=== PATIENT | female | born 1980 | race Caucasian/White ===

== ENCOUNTER 2018-01-02 18:27 | Emergency (ER) | payer SELFPAY ==
[2018-01-02] MEDS ORDERED: KETOROLAC TROMETHAMINE INJ/PF 30 MG/1 ML SDV IM ONE (20:29)
--- NOTE | 2018-01-02 20:34 | ER Document Report ---
ED Neck/Back Problem - General Chief Complaint: Low Back Pain Stated Complaint: BACK PAIN Time Seen by Provider: 01/02/18 19:15 Mode of Arrival: Ambulatory Information source: Patient TRAVEL OUTSIDE OF THE [place] IN LAST 30 DAYS: No - HPI Patient complains to provider of: Pain, Lower back Notes: Patient is here with complaints of low back pain. The patient has a long history of chronic back pain and used to receive injections in her back when she had insurance. She states that she has lost her Medicaid and has not been able to get her injections. Her last several days she has had increasing low back pain radiating into the left hip/buttock. No trauma or fall. This feels like prior back pain she has had in the past. She is not on blood thinning medications. She denies fever, bowel or bladder dysfunction, numbness, tingling , weakness, IV drug use. She denies any abdominal pain. She denies any nausea , vomiting, diarrhea. She denies chest pain or shortness of breath. She denies dysuria or hematuria. Pain is worse with any movement, nothing seems to make it better. She denies any other complaints at this time. - Related Data Allergies/Adverse Reactions: Penicillins Allergy (Verified 01/02/18 18:41) Past Medical History - Social History Smoking Status: Smoker,Current Status Unk Family History: Reviewed & Not Pertinent Patient has suicidal ideation: No Patient has homicidal ideation: No Pulmonary Medical History: Reports: Hx Asthma Neurological Medical History: Reports: Hx Seizures - "stress seizures" Endocrine Medical History: Reports: Hx Diabetes Mellitus Type 2 Renal/ Medical History: Denies: Hx Peritoneal Dialysis Psychiatric Medical History: Reports: Hx Anxiety, Hx Bipolar Disorder Past Surgical History: Reports: Hx Tubal Ligation - Immunizations Hx Diphtheria, Pertussis, Tetanus Vaccination: Yes Review of Systems - Review of Systems -: Yes All other systems reviewed and negative Physical Exam - Vital signs Vitals: Temp Pulse Resp BP Pulse Ox 98.6 F 94 18 143/86 H 100 01/02/18 18:44 01/02/18 18:44 01/02/18 18:44 01/02/18 18:44 01/02/18 18:44 - Notes Notes: GENERAL: alert, cooperative, nontoxic, no distress. HEAD: normocephalic, atraumatic EYES: conjunctiva pink without discharge, no external redness or swelling. EARS: no external swelling, no external redness NOSE: atraumatic, no external swelling MOUTH/THROAT: mucous membranes moist and pink, posterior pharynx without erythema, swelling, exudate. No trismus or drooling. NECK: soft, supple, full range of motion, no meningismus. CHEST: no distress, lungs clear and equal throughout. No wheezing, rales, rhonchi. CARDIAC: regular rate and rhythm, no murmur, normal capillary refill, normal pulses. No peripheral edema noted. ABDOMEN: soft, nontender, no pusatile mass. BACK: No CVA tenderness. Tenderness to the lumbar spine as well as the left SI joint. No swelling. No rash. Limited range of motion secondary to pain. EXTREMITIES: full range of motion of all extremities. No redness, no swelling. NEURO: alert and oriented A&O x 3, no focal deficits, full range of motion of all extremities. 5 out of 5 flexion and extension of the lower extremities bilaterally. Patellar and Achilles deep tendon reflexes are +2 bilaterally. Normal sensation with no saddle anesthesia. Patient can dorsiflex the great toes bilaterally. PYSCH: appropriate mood, affect. Patient is cooperative. SKIN: pink, warm, dry, no rash. Course - Re-evaluation Re-evalutation: 01/02/18 20:31 The patient is nontoxic appearing with stable vitals. The patient has a history of chronic low back pain and has been having increasing pain over the last several days. She has had no injury. Feels like prior exacerbations of her previous pain. No sign of cauda equina, epidural abscess/bleed, AAA, discitis, osteomyelitis. She has a benign exam. No abdominal tenderness. Patient will be given a shot of Toradol here in the emergency department will be discharged home with Voltaren and Zanaflex. She is instructed to follow-up if she does not feel better in 1 week, sooner for increasing pain, fever, difficulty controlling her bowels or bladder, nausea, vomiting, diarrhea, or for any further concerns. The patient is noted to have elevated blood pressure during today's emergency department visit. The patient was informed of this finding. The patient was instructed that this may be related to pre-hypertension and requires further evaluation with a primary care provider. The patient has no hypertensive symptoms at this time. The patient's emergency department workup and current diagnosis were explained to the patient and or family. Follow-up instructions were provided. Medications if prescribed were discussed. Instructions for when to return to the emergency department including specific worrisome symptoms were discussed with the patient and/or family. - Vital Signs Vital signs: Temp Pulse Resp BP Pulse Ox 98.6 F 94 18 143/86 H 100 01/02/18 18:44 01/02/18 18:44 01/02/18 18:44 01/02/18 18:44 01/02/18 18:44 Discharge - Discharge Clinical Impression: Chronic low back pain with left-sided sciatica Qualifiers: Back pain laterality: left Qualified Code(s): M54.42 - Lumbago with sciatica, left side; G89.29 - Other chronic pain; G89.29 - Other chronic pain Condition: Stable Disposition: HOME, SELF-CARE Instructions: Low Back Pain ([facility]) Additional Instructions: Take medications as prescribed. Avoid heavy lifting. Stretch as much as possible. Follow-up if not better in 1 week, sooner for worsening pain, high fever, persistent vomiting, difficulty controlling her bowels or bladder, or for any further concerns. Your blood pressure was elevated during today's visit. Have this rechecked with your doctor. Prescriptions: Diclofenac Sodium [Voltaren 50 Mg Mica.] 50 mg PO BID #20 tablet. Tizanidine HCl [Zanaflex 4 Mg Tablet] 4 mg PO BID PRN #10 tablet PRN Reason: Forms: Elevated Blood Pressure, Smoking Cessation Education Referrals: [facility] [Provider Group] - Follow up as needed
[2018-01-02 21:00] VITALS: BP 132/83
== END 2018-01-02 21:00 | disposition home or self-care (01) ==
LOC: ER 18:27
DX: M54.42 Lumbago with sciatica, left side (principal); G89.29 Other chronic pain; M25.552 Pain in left hip; E11.9 Type 2 diabetes mellitus without complications; F17.200 Nicotine dependence, unspecified, uncomplicated
CPT/HCPCS: 99283; 96372; J1885

== ENCOUNTER 2018-02-09 00:25 | Emergency (ER) | payer SELFPAY ==
[2018-02-09 01:14] LABS: ABSOLUTE BASOPHILS # (AUTO) 0.1 10^3/uL (0.0-0.2); ABSOLUTE EOSINOPHILS # (AUTO) 0.3 10^3/uL (0.0-0.6); ABSOLUTE LYMPHOCYTES (AUTO) 3.7 10^3/uL (0.5-4.7); ABSOLUTE MONOCYTES (AUTO) 0.6 10^3/uL (0.1-1.4); BASOPHILS % (AUTO) 0.8 % (0-2); EOSINOPHILS % (AUTO) 2.4 % (0-6); HEMATOCRIT 28.5 % (36.0-47.0); HEMOGLOBIN 8.9 g/dL (12.0-15.5); LYMPHOCYTES % (AUTO) 34.8 % (13-45); MEAN CORPUSCULAR HEMOGLOBIN 21.4 pg (27.0-33.4); MEAN CORPUSCULAR HGB CONC 31.2 g/dL (32.0-36.0); MEAN CORPUSCULAR VOLUME 69 fl (80-97); MONOCYTES % (AUTO) 5.5 % (3-13); PLATELET COUNT 276 10^3/uL (150-450); RED BLOOD COUNT 4.15 10^6/uL (3.72-5.28); RED CELL DISTRIBUTION WIDTH 18.5 % (11.5-14.0); SEGMENTED NEUTROPHILS % (AUTO) 56.5 % (42-78); TOTAL CELLS COUNTED % (AUTO) 100 %; WHITE BLOOD COUNT 10.6 10^3/uL (4.0-10.5)
--- NOTE | 2018-02-09 01:23 | ER Document Report ---
ED General - General Chief Complaint: Vaginal Bleeding Stated Complaint: VAGINAL BLEEDING Time Seen by Provider: 02/09/18 00:49 Notes: Patient is a 37-year-old female with a past medical history of chronic anemia, dysfunctional uterine bleeding, who presents with heavy vaginal bleeding for the past 3 hours. Patient states that she typically has heavy menstrual cycles that last for 2 weeks or more in which she often passes large clots. However she states that tonight for the past 3 hours she has been bleeding much more heavily than normal and has bled through total of 5 pads in the past 3 hours. She denies ever bleeding this heavily in the past. Nothing seems to improve or worsen her symptoms. She has not followed with an ORTHOPAEDIC DOCTOR regarding her dysfunctional uterine bleeding. She does note chronic anemia but is not currently taking iron supplementation. She does not use any form of control. She does note intermittent, cramping, mild lower abdominal pain that has been ongoing since the onset of the bleeding. She denies any lightheadedness, syncope or orthostasis. TRAVEL OUTSIDE OF THE [place] IN LAST 30 DAYS: No - Related Data Allergies/Adverse Reactions: Penicillins Allergy (Verified 01/02/18 18:41) Past Medical History - General Information source: Patient - Social History Smoking Status: Current Every Day Smoker Cigarette use (# per day): Yes - 1 pack per day Chew tobacco use (# tins/day): No Smoking Education Provided: Yes - Smoking cessation counseling was provided for 4 minutes at the bedside Frequency of alcohol use: Occasional Drug Abuse: None Lives with: Spouse/Significant other Family History: Reviewed & Not Pertinent Patient has suicidal ideation: No Patient has homicidal ideation: No Pulmonary Medical History: Reports: Hx Asthma Neurological Medical History: Reports: Hx Seizures - "stress seizures" Endocrine Medical History: Reports: Hx Diabetes Mellitus Type 2 Renal/ Medical History: Denies: Hx Peritoneal Dialysis Psychiatric Medical History: Reports: Hx Anxiety, Hx Bipolar Disorder Past Surgical History: Reports: Hx Tubal Ligation - Immunizations Hx Diphtheria, Pertussis, Tetanus Vaccination: Yes Review of Systems - Review of Systems Notes: Constitutional: Negative for fever. HENT: Negative for sore throat. Eyes: Negative for visual changes. Cardiovascular: Negative for chest pain. Respiratory: Negative for shortness of breath. Gastrointestinal: Negative for abdominal pain, vomiting or diarrhea. Genitourinary: Positive for vaginal bleeding Musculoskeletal: Negative for back pain. Skin: Negative for rash. Neurological: Negative for headaches, weakness or numbness. 10 point ROS negative except as marked above and in HPI. Physical Exam - Vital signs Vitals: Temp Pulse Resp BP Pulse Ox 98.2 F 118 H 16 153/90 H 100 02/09/18 00:31 02/09/18 00:31 02/09/18 00:31 02/09/18 00:31 02/09/18 00:31 Interpretation: Tachycardic - Resolved at the time of my assessment. Notes: PHYSICAL EXAMINATION: GENERAL: Well-appearing, well-nourished and in no acute distress. HEAD: Atraumatic, normocephalic. EYES: Pupils equal round and reactive to light, extraocular movements intact, sclera anicteric, conjunctiva are normal. ENT: nares patent, oropharynx clear without exudates. Moist mucous membranes. NECK: Normal range of motion, supple without lymphadenopathy LUNGS: Breath sounds clear to auscultation bilaterally and equal. No wheezes rales or rhonchi. HEART: Regular rate and rhythm without murmurs ABDOMEN: Soft, nontender, normoactive bowel sounds. No guarding, no rebound. No masses appreciated. EXTREMITIES: Normal range of motion, no pitting or edema. No cyanosis. NEUROLOGICAL: No focal neurological deficits. Moves all extremities spontaneously and on command. PSYCH: Normal mood, normal affect. SKIN: Warm, Dry, normal turgor, no rashes or lesions noted. Course - Re-evaluation Re-evalutation: 02/09/18 01:24 Presentation is most consistent with dysfunctional uterine bleeding and otherwise well-appearing patient. Hemoglobin does show anemia although well above the transfusion threshold at a hemoglobin of 8.9. No old for comparison. Patient does note a history of chronic anemia. She will be started on iron supplementation. She is not . Mild tachycardia at time of presentation is resolved by the time of my assessment. Examination is otherwise unremarkable. She denies bleeding through more than 2 pads an hour at any point in time. Patient will be started on oral control pills to help discontinue the bleeding. She has been encouraged to follow-up with OB/ ALUM OPERATOR. She has agreed to discontinue smoking while on control and has verbalized understanding that is extremely dangerous to smoke and use control at the same time. At this time will discharge with return precautions and follow-up recommendations. Verbal discharge instructions given a the bedside and opportunity for questions given. Medication warnings reviewed. Patient is in agreement with this plan and has verbalized understanding of return precautions and the need for primary care follow-up in the next 24-72 hours. - Vital Signs Vital signs: Temp Pulse Resp BP Pulse Ox 98.3 F 84 17 134/77 H 100 02/09/18 02:20 02/09/18 02:20 02/09/18 02:20 02/09/18 02:20 02/09/18 02:20 - Laboratory Result Diagrams: 02/09/18 01:00 Laboratory results interpreted by me: 02/09/18 01:00 WBC 10.6 H Hgb 8.9 L Hct 28.5 L MCV 69 L MCH 21.4 L MCHC 31.2 L RDW 18.5 H Discharge - Discharge Clinical Impression: Dysfunctional uterine bleeding, Blood loss anemia Condition: Good Disposition: HOME, SELF-CARE Additional Instructions: You were seen today for dysfunctional uterine bleeding. This is when you have vaginal bleeding and abdominal cramping off of your normal menstrual cycle. You have been started on control pills to help regulate your cycle and control your symptoms. You need to follow-up with ORTHOPAEDIC DOCTOR or your primary care physician the next 1-3 days. Return immediately if you worsening pain, you began bleeding through more than 3 pads per hour for more than 3 hours, you pass out, have persistent vomiting, develop a fever greater than 100.4F, or any other symptoms that are concerning to you. Prescriptions: Ferrous Sulfate 325 mg PO TID #90 tablet Norgestimate-Ethinyl Estradiol [Sprintec 28 Day Tablet] 1 each PO ASDIR PRN #2 packet PRN Reason: Referrals: NERY CALZADA MD [ACTIVE STAFF] - Follow up as needed
[2018-02-09] MEDS ORDERED: FERROUS SULFATE 325 MG TABLET PO ONE (01:27)
[2018-02-09] MEDS ORDERED: NICOTINE 7 MG/24 HR PATCH.TD24 TD ONE (01:53)
[2018-02-09] MEDS ORDERED: NICOTINE 7 MG/24 HR PATCH.TD24 ONE (02:16)
[2018-02-09 02:24] VITALS: BP 134/77
== END 2018-02-09 02:24 | disposition home or self-care (01) ==
LOC: ER 00:25
DX: N93.8 Other specified abnormal uterine and vaginal bleeding (principal); D50.0 Iron deficiency anemia secondary to blood loss (chronic); F17.210 Nicotine dependence, cigarettes, uncomplicated; J45.909 Unspecified asthma, uncomplicated; E11.9 Type 2 diabetes mellitus without complications
CPT/HCPCS: 99406; 99284; 36415; 84703; 85025; J3490

== ENCOUNTER 2018-05-28 12:31 | Emergency (ER) | payer SELFPAY ==
[2018-05-28] MEDS ORDERED: METHYLPREDNISOLONE INJ 125 MG/2 ML SDV IM ONE (12:39)
[2018-05-28] MEDS ORDERED: EPINEPHRINE INJ/PF 1 MG/1 ML AMPULE IM ONE (12:39)
[2018-05-28] MEDS ORDERED: DIPHENHYDRAMINE HCL 50 MG CAPSULE PO ONE (12:40)
--- NOTE | 2018-05-28 12:42 | ER Document Report ---
ED Allergic Reaction - General Chief Complaint: Allergic Reaction Stated Complaint: WASP STING Time Seen by Provider: 05/28/18 12:39 Mode of Arrival: Ambulatory Information source: Patient Notes: Chief complaint: Bee sting History of complain:( obtained from----patient) 37 years old female presents today with the insect bite over the left cheek. Hornet sting. She had an anaphylactic reaction to bee sting before 2 years ago. With stridors. Therefore concerned and came to the ED. This happened 10 minutes prior to me seeing her. Currently has no stridors, no difficulty in breathing. Slight erythema at the site of. Sting Onset: Sudden Duration: Just prior to arrival Severity: Mild to moderate Quality: Rash Context: As described above Exacerbating factor and relieving factors: None REVIEW OF SYSTEMS: CONSTITUTIONAL : Denies fever, chills, or sweats. Denies recent illness. EENT: Denies eye, ear, throat, or mouth pain or symptoms. Denies nasal or sinus congestion or discharge. Denies throat, tongue, or mouth swelling or difficulty swallowing. CARDIOVASCULAR: Denies chest pain. Denies palpitations or racing or irregular heart beat. Denies ankle edema. RESPIRATORY: Denies cough, cold, or chest congestion. Denies shortness of breath, difficulty breathing, or wheezing. GASTROINTESTINAL: Denies distention. Denies nausea, vomiting, or diarrhea. Denies blood in vomitus, stools, or per rectum. Denies black, tarry stools. Denies constipation. GENITOURINARY: Denies difficulty urinating, painful urination, burning, frequency, blood in urine, or discharge. FEMALE GENITOURINARY: Denies vaginal bleeding, heavy or abnormal periods, irregular periods. Denies vaginal discharge or odor. MUSCULOSKELETAL: Denies back or neck pain or stiffness. Denies joint pain or swelling. SKIN: Denies rash, lesions or sores. HEMATOLOGIC : Denies easy bruising or bleeding. LYMPHATIC: Denies swollen, enlarged glands. NEUROLOGICAL: Denies confusion or altered mental status. Denies passing out or loss of consciousness. Denies dizziness or lightheadedness. Denies headache. Denies weakness or paralysis or loss of use of either side. Denies problems with gait or speech. Denies sensory loss, numbness, or tingling. Denies seizures. PSYCHIATRIC: Denies anxiety or stress. Denies depression, suicidal ideation, or homicidal ideation. ALL OTHER SYSTEMS REVIEWED AND NEGATIVE. PHYSICAL EXAMINATION: GENERAL: Well-appearing, well-nourished and in no acute distress. HEAD: Atraumatic, normocephalic. EYES: Pupils equal round and reactive to light, extraocular movements intact, conjunctiva are normal. ENT: Nares patent, oropharynx clear without exudates. Moist mucous membranes. NECK: Normal range of motion, supple without lymphadenopathy LUNGS: Breath sounds clear to auscultation bilaterally and equal. No wheezes rales or rhonchi. HEART: Regular rate and rhythm without murmurs ABDOMEN: Soft, nontender, nondistended abdomen. No guarding, no rebound. No masses appreciated. Examination of genitals-deferred Musculoskeletal: Normal range of motion, no pitting or edema. No cyanosis. NEUROLOGICAL: Cranial nerves grossly intact. Normal speech, normal gait. Normal sensory, motor exams PSYCH: Normal mood, normal affect. SKIN: Mild erythema noted left facial region over the cheeks. Dictation was performed using [employer] voice recognition software TRAVEL OUTSIDE OF THE [place] IN LAST 30 DAYS: No - HPI Notes: Dictated - Related Data Allergies/Adverse Reactions: Penicillins Allergy (Verified 01/02/18 18:41) Past Medical History - Social History Smoking Status: Current Every Day Smoker Cigarette use (# per day): No Chew tobacco use (# tins/day): No Smoking Education Provided: No Frequency of alcohol use: Rare Drug Abuse: None Lives with: Family Family History: Reviewed & Not Pertinent Pulmonary Medical History: Reports: Hx Asthma Neurological Medical History: Reports: Hx Seizures - "stress seizures" Endocrine Medical History: Reports: Hx Diabetes Mellitus Type 2 Renal/ Medical History: Denies: Hx Peritoneal Dialysis Psychiatric Medical History: Reports: Hx Anxiety, Hx Bipolar Disorder Past Surgical History: Reports: Hx Tubal Ligation - Immunizations Hx Diphtheria, Pertussis, Tetanus Vaccination: Yes Review of Systems - Review of Systems Notes: Dictated Physical Exam - Notes Notes: Dictated Course - Re-evaluation Re-evalutation: 05/28/18 13:53 Feeling much better bee sting rash has completely disappeared, feeling comfortable to go home. Discharge - Discharge Clinical Impression: Bee sting allergy Acute allergic reaction Qualifiers: Encounter type: initial encounter Qualified Code(s): T78.40XA - Allergy, unspecified, initial encounter Condition: Fair Disposition: HOME, SELF-CARE Instructions: Acute Allergic Reaction ([facility]) Prescriptions: Epinephrine [Epipen Jr 0.15 mg/0.3 mL AutoInject] 1 ea IM ASDIR PRN #1 autoinjector PRN Reason:
== END 2018-05-28 14:10 | disposition home or self-care (01) ==
LOC: ER 12:31
DX: T63.441A Toxic effect of venom of bees, accidental (unintentional), initial encounter (principal); T78.40XA Allergy, unspecified, initial encounter; F17.200 Nicotine dependence, unspecified, uncomplicated; J45.909 Unspecified asthma, uncomplicated; E11.9 Type 2 diabetes mellitus without complications
CPT/HCPCS: 99282; 96372; 96374; J0171; J2930

== ENCOUNTER 2018-09-30 07:01 | Inpatient (IN) | payer MEDICAID ==
[2018-09-23 13:07] LABS: APPEARANCE,URINE CLEAR; BILIRUBIN,URINE NEGATIVE (NEGATIVE); COLOR,URINE STRAW; GLUCOSE, URINE NEGATIVE (NEGATIVE); KETONES,URINE NEGATIVE (NEGATIVE); LEUKOCYTE ESTERASE,URINE NEGATIVE (NEGATIVE); NITRITE,URINE NEGATIVE (NEGATIVE); PROTEIN,URINE NEGATIVE (NEGATIVE); URINE SPECIFIC GRAVITY 1.006; UROBILINOGEN,URINE NEGATIVE mg/dL (<2.0)
[2018-09-23 14:11] LABS: HEMATOCRIT 31.3 % (36.0-47.0); HEMOGLOBIN 9.7 g/dL (12.0-15.5); MEAN CORPUSCULAR HEMOGLOBIN 21.7 pg (27.0-33.4); MEAN CORPUSCULAR VOLUME 70 fl (80-97); PLATELET COUNT 293 10^3/uL (150-450); RED BLOOD COUNT 4.47 10^6/uL (3.72-5.28); RED CELL DISTRIBUTION WIDTH 21.8 % (11.5-14.0); WHITE BLOOD COUNT 7.9 10^3/uL (4.0-10.5)
[2018-09-23 14:32] LABS: ALANINE AMINOTRANSFERASE 32 U/L (9-52); ALBUMIN 4.4 g/dL (3.5-5.0); ALKALINE PHOSPHATASE 61 U/L (38-126); ANION GAP 11 (5-19); ASPARTATE AMINO TRANSFERASE 28 U/L (14-36); BILIRUBIN,DIRECT 0.2 mg/dL (0.0-0.4); BILIRUBIN,TOTAL 0.2 mg/dL (0.2-1.3); BLOOD UREA NITROGEN 9 mg/dL (7-20); CALCIUM 9.9 mg/dL (8.4-10.2); CARBON DIOXIDE 25 mmol/L (22-30); CHLORIDE 105 mmol/L (98-107); GLUCOSE 103 mg/dL (75-110); POTASSIUM 4.4 mmol/L (3.6-5.0); SODIUM 141.4 mmol/L (137-145); TOTAL PROTEIN 7.2 g/dL (6.3-8.2)
[~2018-09-30 07:01] MED LIST: ACETAMINOPHEN 1,000 MG/100 ML RTUPB IV ONE; CEFAZOLIN 2 GM/D5W RTU 2 GM/50 ML RTUPB IV ONE; CEFAZOLIN 2 GM/D5W RTU 2 GM/50 ML RTUPB IV PRN; DEXAMETHASONE SOD PHOSPHATE INJ 4 MG/1 ML VIAL ONE; FENTANYL CITRATE INJ/PF 100 MCG/2 ML AMPUL ONE; KETOROLAC TROMETHAMINE 60 MG/2 ML SDV ONE; LACTATED RINGERS 1000 ML IV PRN; LIDOCAINE 0.5% INJ-PF (5 MG/ML) 50 ML SDV SUBCUT PRN; LIDOCAINE 2% INJ-PF (20 MG/ML) 10 ML AMPUL ONE; MIDAZOLAM 2 MG/2 ML INJ ONE; ONDANSETRON HCL INJ/PF 4 MG/2 ML SDV ONE; PROPOFOL INJ 200 MG/20 ML VIAL IV ONE; SUGAMMADEX SODIUM 200 MG/2 ML SDV IV ONE
[2018-09-30] MEDS ORDERED: MORPHINE SULFATE 10 MG/ML INJ IV PRN (08:56)
[2018-09-30] MEDS ORDERED: ONDANSETRON HCL INJ/PF 4 MG/2 ML SDV IV PRN (08:56)
[2018-09-30] MEDS ORDERED: PROMETHAZINE HCL INJ 25 MG/1 ML VIAL IV PRN ×3 (08:56→10:08)
[2018-09-30] MEDS ORDERED: DIPHENHYDRAMINE HCL 50 MG/ML VIAL IV PRN (08:56)
[2018-09-30] MEDS ORDERED: FENTANYL CITRATE INJ/PF 100 MCG/2 ML AMPUL IV PRN ×3 (08:56)
[2018-09-30] MEDS ORDERED: MEPERIDINE HCL/PF INJ 25 MG/1 ML DISP.SYRIN IV PRN (08:56)
[2018-09-30] MEDS ORDERED: DIPH/PERTUSS(ACELL)/TETANUS VAC/PF 0.5 ML SYR (>=10YO) IM PRN (10:08)
[2018-09-30] MEDS ORDERED: HYDROMORPHONE HCL INJ/PF 2 MG/ML AMPULE IV PRN (10:08)
[2018-09-30] MEDS ORDERED: SIMETHICONE 80 MG TAB.CHEW PO PRN (10:08)
[2018-09-30] MEDS ORDERED: ACETAMINOPHEN 325 MG TABLET PO PRN (10:08)
[2018-09-30] MEDS ORDERED: ACETAMINOPHEN 1,000 MG/100 ML RTUPB IV PRN (10:08)
[2018-09-30] MEDS ORDERED: OXYCODONE-ACETAMINOPHEN 5-325 MG TABLET PO PRN (10:08)
[2018-09-30] MEDS ORDERED: MEASLES,MUMPS&RUBELLA VACC/PF 0.5 ML VIAL SUBCUT PRN (10:08)
[2018-09-30] MEDS ORDERED: RINGERS SOLUTION,LACTATED 1,000 ML IV PRN (10:08)
[2018-09-30] MEDS: FENTANYL CITRATE INJ/PF 100 MCG/2 ML AMPUL ONE ×2 (10:15→10:20)
--- NOTE | 2018-09-30 10:21 | Operative Report ---
Operative Report DATE OF SURGERY: 09/30/18 PREOPERATIVE DIAGNOSIS: Heavy menses, anemia, fibroid uterus POSTOPERATIVE DIAGNOSIS: Same OPERATION: Total abdominal hysterectomy with bilateral salpingectomy the ovaries were left in place SURGEON: ELOISE MURPHY ANESTHESIA: GA TISSUE REMOVED OR ALTERED: Uterus and fallopian tubes COMPLICATIONS: None ESTIMATED BLOOD LOSS: 125 cc INTRAOPERATIVE FINDINGS: Normal ovaries, large fibroid uterus PROCEDURE: Patient was taken back to the OR and placed in supine position. General anesthesia was induced. She was placed in the supine position. A Bonilla catheter had been placed a vaginal prep was done and an abdominal prep was done. She was draped in the usual fashion. A low transverse incision was made and carried down the level of the fascia. The fascia was nicked in the midline. Fascial incision was extended bilaterally using curved Branch scissors. The fascia was off the rectus muscles using sharp and blunt dissection. The rectus muscles were midline peritoneum was entered without incident. The peritoneal incision was extended superiorly inferiorly taking care not to injure bladder. An Chandana retractor was placed. The bowel was packed back with 2 moist lap sponges. The uterus was delivered through the incision. The fallopian tubes were removed with the LigaSure device and passed off the field. The round ligaments were divided bilaterally using the LigaSure. The utero-ovarian pedicles were then clamped ligated and cut with the LigaSure device. The anterior leaf of the broad ligament was incised creating a bladder flap. The bladder flap was taken off the anterior cervix using sharp and blunt dissection. Because of the very large fibroids this part of the procedure actually proceeded rather easily. The broad ligament was clamped cut and divided with the LigaSure device. The uterine arteries were skeletonized bilaterally and then were clamped cauterized and cut with the LigaSure device. The cardinal ligaments were then clamped with a straight Abdulaziz clamp cut and ligated with a 0 Vicryl suture in a transfixation technique bilaterally. Upon reaching the uterine angles the angle was clamped with a curved Abdulaziz clamp cut and ligated with a transfixation suture of 0 Vicryl. The cervix was cut free from the vaginal cuff. The cuff was closed with an interrupted suture of 0 Vicryl. The pelvis was then irrigated and suctioned free of fluid. At the anterior cervix there was a small area of bleeding and this was closed with a 3-0 chromic suture in a [id number] technique. The pelvis was then irrigated and suctioned free of fluid. All pedicles were inspected and found to be hemostatic. The ovaries appeared normal and healthy and were left in place. The retractor and lap sponges were removed. The peritoneum at the abdominal wall was closed with a running 2-0 chromic stitch. The subfascial tissues were inspected for bleeding the fascia was closed with a running 0 Vicryl in 2 segments. The wound was irrigated. Ramu's layer was closed with a 2 oh plain gut stitch and skin closed with a running subcuticular 4-0 undyed Vicryl stitch. The wound was dressed patient was extubated in the OR and taken recovery room in stable condition.
[2018-09-30] MEDS: MORPHINE SULFATE 10 MG/ML INJ ONE ×4 (10:24→10:42)
[2018-09-30] MEDS ORDERED: PROMETHAZINE HCL INJ 25 MG/1 ML VIAL ONE (10:43)
[2018-09-30] MEDS: CEFAZOLIN 1 GM/D5W RTU 1 GM/50 ML RTUPB IV SCH ×3 (12:28→23:55)
[2018-09-30] MEDS: KETOROLAC TROMETHAMINE INJ/PF 30 MG/1 ML SDV IV SCH ×2 (13:06→22:00)
[2018-09-30] MEDS ORDERED: SUCCINYLCHOLINE CHLORIDE INJ 200 MG/10 ML VIAL ONE (14:36)
[2018-09-30] MEDS ORDERED: GLYCOPYRROLATE 1 MG/5 ML SYRINGE ONE (14:36)
[2018-09-30] MEDS ORDERED: NEOSTIGMINE METHYLSULFATE 10 MG/10 ML VIAL ONE (14:36)
[2018-09-30] MEDS ORDERED: VECURONIUM BROMIDE INJ 10 MG VIAL IV ONE (14:36)
[2018-09-30 16:40] LABS: HEMATOCRIT 30.1 % (36.0-47.0); HEMOGLOBIN 9.3 g/dL (12.0-15.5); MEAN CORPUSCULAR HEMOGLOBIN 21.5 pg (27.0-33.4); MEAN CORPUSCULAR HGB CONC 30.8 g/dL (32.0-36.0); MEAN CORPUSCULAR VOLUME 70 fl (80-97); PLATELET COUNT 203 10^3/uL (150-450); RED BLOOD COUNT 4.32 10^6/uL (3.72-5.28); RED CELL DISTRIBUTION WIDTH 20.8 % (11.5-14.0); WHITE BLOOD COUNT 15.7 10^3/uL (4.0-10.5)
[2018-09-30 17:02] LABS: ABSOLUTE LYMPHOCYTES# (MANUAL) 0.8 10^3/uL (0.5-4.7); ABSOLUTE MONOCYTES # (MANUAL) 0.6 10^3/uL (0.1-1.4); ABSOLUTE NEUTROPHILS# (MANUAL) 14.3 10^3/uL (1.7-8.2); BASOPHILS % (MANUAL) 0 % (0-2); EOSINOPHILS % (MANUAL) 0 % (0-6); LYMPHOCYTES % (MANUAL) 5 % (13-45); MONOCYTES % (MANUAL) 4 % (3-13); SEGMENTED NEUTROPHILS % (MAN) 91 % (42-78); TOTAL CELLS COUNTED 100
[2018-09-30 17:04] LABS: ANISOCYTOSIS 2+; HYPOCHROMASIA 1+; OVALOCYTES SLIGHT; PLATELET COMMENT ADEQUATE; POIKILOCYTOSIS SLIGHT; TOXIC GRANULATION SLIGHT
[2018-09-30 17:09] LABS: ANION GAP 11 (5-19); BLOOD UREA NITROGEN 8 mg/dL (7-20); CALCIUM 9.6 mg/dL (8.4-10.2); CARBON DIOXIDE 25 mmol/L (22-30); CHLORIDE 105 mmol/L (98-107); GLUCOSE 172 mg/dL (75-110); SODIUM 140.6 mmol/L (137-145)
[2018-09-30] MEDS: DOCUSATE SODIUM 100 MG CAPSULE PO SCH (17:48)
[2018-09-30] MEDS: OXYCODONE-ACETAMINOPHEN 5-325 MG TABLET PO PRN (23:58)
[2018-10-01] MEDS: CEFAZOLIN 1 GM/D5W RTU 1 GM/50 ML RTUPB IV SCH (05:45)
[2018-10-01] MEDS: KETOROLAC TROMETHAMINE INJ/PF 30 MG/1 ML SDV IV SCH (05:47)
[2018-10-01] MEDS: OXYCODONE-ACETAMINOPHEN 5-325 MG TABLET PO PRN (06:20)
[2018-10-01 06:56] LABS: HEMATOCRIT 25.3 % (36.0-47.0); MEAN CORPUSCULAR HEMOGLOBIN 21.7 pg (27.0-33.4); MEAN CORPUSCULAR VOLUME 70 fl (80-97); PLATELET COUNT 177 10^3/uL (150-450); RED BLOOD COUNT 3.61 10^6/uL (3.72-5.28); RED CELL DISTRIBUTION WIDTH 20.8 % (11.5-14.0); WHITE BLOOD COUNT 15.1 10^3/uL (4.0-10.5)
[2018-10-01 06:59] LABS: HEMOGLOBIN 7.8 g/dL (12.0-15.5)
[2018-10-01 08:43] VITALS: BP 99/48
--- NOTE | 2018-10-01 09:40 | PDOC DISCHARGE SUMMARY ---
General - Admit/Disc Date/PCP Admission Date/Primary Care Provider: 09/30/18 07:01 BETTIE LOMBARDO Discharge Date: 10/01/18 - Discharge Diagnosis (1) Uterine fibroid Is this a current diagnosis for this admission?: Yes (2) Anemia Is this a current diagnosis for this admission?: Yes (3) Menorrhagia Is this a current diagnosis for this admission?: Yes - Additional Information Home Medications: Atorvastatin Calcium [Lipitor 20 mg Tablet] 20 mg PO QAM 09/30/18 Ferrous Sulfate [Feosol 325 mg Tablet] 325 mg PO DAILY 09/30/18 Metformin HCl [Glucophage] 1,000 mg PO BID 09/30/18 History of Present Illness Patient complains of: Heavy menses History of Present Illness: LARA SARAVIA is a 37 year old female She has heavy menses and a large fibroid uterus. She requests hysterectomy and would like to keep the ovaries if they are normal. Hospital Course Hospital Course: She had a hysterectomy. Please see the operative report. Post operatively she did well and wishes to go home today. She will followup next week. Physical Exam - Physical Exam Vital Signs: Temp Pulse Resp BP Pulse Ox 98.7 F 74 18 99/48 L 98 10/01/18 08:42 10/01/18 08:42 10/01/18 08:42 10/01/18 08:42 10/01/18 08:42 Intake & Output 09/30/18 10/01/18 10/02/18 06:59 06:59 06:59 Intake Total 5080 Output Total 1590 Balance 3490 Weight 80.8 kg General appearance: PRESENT: no acute distress - Dressing is dry., well- developed, well-nourished Result Laboratory Results: 10/01/18 06:38 09/30/18 16:10 09/30/18 09/30/18 10/01/18 16:10 16:10 06:38 WBC 15.7 H 15.1 H RBC 4.32 3.61 L Hgb 9.3 L 7.8 L Hct 30.1 L 25.3 L MCV 70 L 70 L MCH 21.5 L 21.7 L MCHC 30.8 L 31.0 L RDW 20.8 H 20.8 H Plt Count 203 177 Seg Neutrophils % Not Reportable Lymphocytes % Not Reportable Monocytes % Not Reportable Eosinophils % Not Reportable Basophils % Not Reportable Absolute Neutrophils Not Reportable Absolute Lymphocytes Not Reportable Absolute Monocytes Not Reportable Absolute Eosinophils Not Reportable Absolute Basophils Not Reportable Sodium 140.6 Potassium 5.0 Chloride 105 Carbon Dioxide 25 Anion Gap 11 BUN 8 Creatinine 0.66 Est GFR ( Amer) > 60 Est GFR (Non-Af Amer) > 60 Glucose 172 H Calcium 9.6 Impressions: Post op day one. She is doing well. She is anemic but was so upon presentation. She is doing well and wishes to go home today. Plan Discharge Plan: Home with pain medication. Followup next week. Time Spent: Less than 30 Minutes
[2018-10-01] MEDS ORDERED: PRENATAL VITAMIN W DHA CAPSULE PO SCH (10:00)
[2018-10-01] MEDS: DOCUSATE SODIUM 100 MG CAPSULE PO SCH (10:12)
[2018-10-01] MEDS ORDERED: IBUPROFEN 800 MG TABLET PO SCH (12:00)
== END 2018-10-01 10:19 | disposition home or self-care (01) | DRG 743 ==
LOC: INOR 07:01 → 2N 11:39
PROVIDERS: ADMIT Obstetrics & Gynecology; ATTEND Obstetrics & Gynecology
PROC: 0UT70ZZ Resection of Bilateral Fallopian Tubes, Open Approach (ICD-10-PCS; 2018-09-30)
PROC: 0UT90ZZ Resection of Uterus, Open Approach (ICD-10-PCS; principal; 2018-09-30 09:00)
DX: N92.0 Excessive and frequent menstruation with regular cycle (principal); D64.9 Anemia, unspecified; D25.9 Leiomyoma of uterus, unspecified; F17.210 Nicotine dependence, cigarettes, uncomplicated
CPT/HCPCS: 36415; 80048; 80053; 81001; 81025; 82962; 85025; 85027; 86850; 86900; 86901; 88307; 944; 94799; J0131; J0330; J0690; J1100; J1170; J1885; J2250; J2270; J2405; J2550; J2704; J3010; J3490

== ENCOUNTER 2018-12-14 00:03 | Emergency (ER) | payer MEDICAID ==
[2018-12-14] MEDS ORDERED: IPRATROPIUM/ALBUTEROL 0.5-2.5 MG/3 ML AMPUL NEB ONE (00:56)
[2018-12-14] MEDS ORDERED: PREDNISONE 20 MG TABLET PO ONE (00:56)
[2018-12-14 01:05] VITALS: BP 137/88
--- NOTE | 2018-12-14 01:17 | ER Document Report ---
HPI - HPI Patient complains to provider of: Sore throat, cough congestion Time Seen by Provider: 12/14/18 00:42 Onset: Yesterday Onset/Duration: Gradual Quality of pain: Achy Pain Level: 2 Context: Patient presents complaining of sore throat cough and congestion that started gradually. Patient does report recent sick contacts. Patient denies any fever. Patient does have a history of asthma and states that it does flareup when she gets colds. Associated Symptoms: Nonproductive cough, Rhinnorhea, Sore throat. denies: Chest pain, Productive cough, Earache, Fever, Nausea Exacerbated by: Denies Relieved by: Denies Similar symptoms previously: Yes Recently seen / treated by doctor: No - ROS ROS below otherwise negative: Yes Systems Reviewed and Negative: Yes All other systems reviewed and negative - CONSTITUTIONAL Constitutional: DENIES: Fever - EENT EENT: REPORTS: Sore Throat, Nasal Drainage-Clear, Congestion - CARDIOVASCULAR Cardiovascular: DENIES: Chest pain - RESPIRATORY Respiratory: REPORTS: Coughing. DENIES: Trouble Breathing - GASTROINTESTINAL Gastrointestinal: DENIES: Nausea, Patient vomiting, Diarrhea - REPRODUCTIVE Reproductive: DENIES: : - DERM Skin Color: Normal Skin Problems: None Past Medical History - General Information source: Patient - Social History Smoking Status: Current Every Day Smoker Smoking Education Provided: Yes Frequency of alcohol use: None Drug Abuse: None Occupation: None Lives with: Family Family History: Reviewed & Not Pertinent - Past Medical History Cardiac Medical History: Reports: Hx Hypercholesterolemia Pulmonary Medical History: Reports: Hx Asthma, Hx Tuberculosis - EXPOSED A CHILD Neurological Medical History: Reports: Hx Seizures - "STRESS RELATED" LAST IN 2 002 Endocrine Medical History: Reports: Hx Diabetes Mellitus Type 2 GI Medical History: Reports: Hx Gastroesophageal Reflux Disease Musculoskeletal Medical History: Reports Hx Arthritis Psychiatric Medical History: Reports: Hx Anxiety, Hx Bipolar Disorder Past Surgical History: Reports: Hx Hysterectomy, Hx Tubal Ligation - Immunizations Hx Diphtheria, Pertussis, Tetanus Vaccination: Yes Vertical Provider Document - CONSTITUTIONAL Agree With Documented VS: Yes Exam Limitations: No Limitations General Appearance: WD/WN, No Apparent Distress - INFECTION CONTROL TRAVEL OUTSIDE OF THE [place] IN LAST 30 DAYS: No - HEENT HEENT: Atraumatic, Normocephalic, Pharyngeal Tenderness, Pharyngeal Erythema. negative: Pharyngeal Exudate, Tympanic Membrane Red, Tympanic Membrane Bulging - NECK Neck: Normal Inspection, Supple. negative: Lymphadenopathy-Left, Lymphadenopathy-Right - RESPIRATORY Respiratory: No Respiratory Distress, Chest Non-Tender, Wheezing - CARDIOVASCULAR Cardiovascular: Regular Rate, Regular Rhythm, No Murmur - BACK Back: Normal Inspection - MUSCULOSKELETAL/EXTREMETIES Musculoskeletal/Extremeties: MAEW - NEURO Level of Consciousness: Awake, Alert, Appropriate Motor/Sensory: No Motor Deficit - DERM Integumentary: Warm, Dry, No Rash Course - Re-evaluation Re-evalutation: 12/14/18 Patient's respirations even unlabored, patient nontoxic in appearance. No concern for pneumonia at this time. Strep test negative, throat culture is pending. No concern for peritonsillar abscess. Patient does have an inhaler at home. Good return precautions discussed. Patient agreeable with discharge plan of care. - Vital Signs Vital signs: Temp Pulse Resp BP Pulse Ox 97.5 F 79 17 137/88 H 99 12/14/18 00:57 12/14/18 00:57 12/14/18 00:57 12/14/18 00:57 12/14/18 00:57 Discharge - Discharge Clinical Impression: Sore throat Upper respiratory infection Qualifiers: URI type: unspecified URI Qualified Code(s): J06.9 - Acute upper respiratory infection, unspecified Condition: Stable Disposition: HOME, SELF-CARE Instructions: Acetaminophen, Bronchospasm ([facility]), Sore Throat ([facility]), Steroid Medication, Upper Respiratory Illness ([facility]) Additional Instructions: Return immediately for any new or worsening symptoms Followup with your primary care provider, call tomorrow to make a followup appointment Use your inhaler that you have at home as prescribed Prescriptions: Guaifenesin/Pseudoephedrne HCl [Mucinex D ER 1,200-120 mg Tab] 1 each PO Q12 PRN #12 tab.er.12h PRN Reason: Naproxen [Naprosyn 250 Nmg Tablet] 1 tab PO BID #14 tablet Prednisone [Deltasone 10 mg Tablet] 10 mg PO ASDIR PRN #21 tablet PRN Reason: Forms: Smoking Cessation Education Referrals: ELLIS CHANDLER FNP-C [NO LOCAL MD] - Follow up as needed
== END 2018-12-14 02:07 | disposition home or self-care (01) ==
LOC: ER 00:03
DX: J06.9 Acute upper respiratory infection, unspecified (principal); J02.9 Acute pharyngitis, unspecified; R05 Cough; J45.909 Unspecified asthma, uncomplicated; J34.89 Other specified disorders of nose and nasal sinuses; F17.200 Nicotine dependence, unspecified, uncomplicated; E11.9 Type 2 diabetes mellitus without complications
CPT/HCPCS: 94640; 99283; 87070; 87880; J7512; J7620

== ENCOUNTER → 2019-01-24 | Outpatient (CLI) | payer MEDICAID ==
--- NOTE | 2019-01-24 10:42 | RADIOLOGY REPORT (SQ) ---
EXAM DESCRIPTION: LUMBAR SPINE COMPLETE COMPLETED DATE/TIME: 01/24/2019 10:30 am REASON FOR STUDY: LOW BACK PAIN M54.5 LOW BACK PAIN COMPARISON: None. NUMBER OF VIEWS: Five views including obliques. TECHNIQUE: AP, lateral, oblique, and sacral radiographic images acquired of the lumbar spine. LIMITATIONS: None. FINDINGS: MINERALIZATION: Normal. SEGMENTATION: Normal. No transitional anatomy. ALIGNMENT: Normal. VERTEBRAE: Maintained height. No fracture or worrisome bone lesion. DISCS: Preserved height. No significant osteophytes or end plate irregularity. POSTERIOR ELEMENTS: Pedicles and facets are intact. No pars defect or posterior arch defects. HARDWARE: None in the spine. PARASPINAL SOFT TISSUES: Normal. PELVIS: Intact as visualized. No fractures or worrisome bone lesions. SI joints intact. OTHER: No other significant finding. IMPRESSION: NORMAL 5 VIEW LUMBAR SPINE. TECHNICAL DOCUMENTATION: JOB ID: [id number] [employer]- All Rights Reserved Reading location - IP/workstation name: [email or web address]
== END ==
LOC: OD 10:15
PROVIDERS: ATTEND Nurse Practitioner Family
DX: M54.5 Low back pain (principal)
CPT/HCPCS: 72110

== ENCOUNTER 2019-02-02 12:13 | Emergency (ER) | payer MEDICAID ==
[2019-02-02] MEDS ORDERED: DEXAMETHASONE SOD PHOS INJ 10 MG/1 ML VIAL IM ONE (13:23)
[2019-02-02] MEDS ORDERED: KETOROLAC TROMETHAMINE 60 MG/2 ML SDV IM ONE (13:23)
--- NOTE | 2019-02-02 13:25 | ER Document Report ---
HPI - HPI Time Seen by Provider: 02/02/19 12:50 Pain Level: 4 Context: Patient is a 38-year-old female who presents the emergency department with a chief complaint of right elbow pain. Her symptoms have been going on for the past 3-4 days. She states that it hurts on the inside of her elbow and moving it in any way hurts, but she is able to move it. She was diagnosed by her primary care provider with tennis elbow about 2 months ago. There were no x- rays done. She denies any trauma. She took some ibuprofen last night, but had little relief. - ROS Systems Reviewed and Negative: Yes All other systems reviewed and negative - CONSTITUTIONAL Constitutional: DENIES: Fever, Chills - EENT EENT: DENIES: Sore Throat - NEURO Neurology: DENIES: Headache - CARDIOVASCULAR Cardiovascular: DENIES: Chest pain - RESPIRATORY Respiratory: DENIES: Coughing - GASTROINTESTINAL Gastrointestinal: DENIES: Abdominal Pain - REPRODUCTIVE Reproductive: DENIES: : - MUSCULOSKELETAL Musculoskeletal: REPORTS: Extremity pain - DERM Skin Color: Normal Skin Problems: None Past Medical History - Social History Smoking Status: Current Every Day Smoker Family History: Reviewed & Not Pertinent Patient has suicidal ideation: No Patient has homicidal ideation: No - Past Medical History Cardiac Medical History: Reports: Hx Hypercholesterolemia Denies: Hx Atrial Fibrillation, Hx Congestive Heart Failure, Hx Coronary Artery Disease, Hx Heart Attack, Hx Hypertension, Hx Peripheral Vascular Disease, Hx Pulmonary Embolism, Hx Heart Murmur Pulmonary Medical History: Reports: Hx Asthma, Hx Tuberculosis - EXPOSED A CHILD Denies: Hx Bronchitis, Hx COPD, Hx Pneumonia, Hx Respiratory Failure, Hx Sleep Apnea Neurological Medical History: Reports: Hx Seizures - "STRESS RELATED" LAST IN 2001. Denies: Hx Cerebrovascular Accident Endocrine Medical History: Reports: Hx Diabetes Mellitus Type 2. Denies: Hx Graves' Disease, Hx Hyperthyroidism, Hx Hypothyroidism Renal/ Medical History: Denies: Hx End Stage Renal Disease, Hx Kidney Stones, Hx Ovarian Cysts, Hx Peritoneal Dialysis, Hx Pelvic Inflammatory Disease Malignancy Medical History: Denies: Hx Breast Cancer, Hx Cervical Cancer, Hx Leukemia, Hx Lung Cancer, Hx Ovarian Cancer GI Medical History: Reports: Hx Gastroesophageal Reflux Disease. Denies: Hx Hiatal Hernia, Hx Irritable Bowel, Hx Liver Failure, Hx Pancreatitis, Hx Ulcer Musculoskeletal Medical History: Reports Hx Arthritis, Denies Hx Fibromyalgia, Denies Hx Multiple Sclerosis, Denies Hx Muscular Dystrophy Psychiatric Medical History: Reports: Hx Anxiety, Hx Bipolar Disorder Denies: Hx Dementia, Hx Depression - ANXIETY, Hx Post Traumatic Stress Disorder, Hx Schizophrenia Traumatic Medical History: Denies: Hx Fractures Infectious Medical History: Denies: Hx HIV Past Surgical History: Reports: Hx Hysterectomy, Hx Tubal Ligation. Denies: Hx Appendectomy, Hx Section, Hx Cholecystectomy, Hx Colostomy, Hx Coronary Artery Bypass Graft, Hx Gastric Bypass Surgery, Hx Herniorrhaphy, Hx Mastectomy, Hx Pacemaker, Hx Tonsillectomy - Immunizations Hx Diphtheria, Pertussis, Tetanus Vaccination: Yes Vertical Provider Document - CONSTITUTIONAL Agree With Documented VS: Yes Exam Limitations: No Limitations General Appearance: No Apparent Distress - INFECTION CONTROL TRAVEL OUTSIDE OF THE [place] IN LAST 30 DAYS: No - HEENT HEENT: Atraumatic, Normocephalic - RESPIRATORY Respiratory: Breath Sounds Normal, No Respiratory Distress - CARDIOVASCULAR Cardiovascular: Regular Rate, Regular Rhythm Pulses: Normal: Radial - MUSCULOSKELETAL/EXTREMETIES Musculoskeletal/Extremeties: FROM, Tender - Right lateral elbow; but patient states that the pain is inside her elbow - NEURO Level of Consciousness: Awake, Alert, Appropriate Motor/Sensory: No Motor Deficit, No Sensory Deficit - DERM Integumentary: Warm, Dry Course - Re-evaluation Re-evalutation: 02/02/19 13:26 Patient will be sent for an x-ray of the elbow. I do not suspect a septic joint. Her skin temperature is normal in the area. She denies any fever. She received Decadron here in the emergency department along with Toradol to help with her pain. 02/02/19 14:28 Patient's is negative for any acute fractures. She will follow-up with her primary care provider and she will be referred out to orthopedics for further evaluation. Verbal discharge instructions were given to the patient. They verbalized understanding. They are stable for discharge. - Vital Signs Vital signs: Temp Pulse Resp BP Pulse Ox 97.4 F 79 16 142/87 H 96 02/02/19 12:18 02/02/19 12:18 02/02/19 12:18 02/02/19 12:18 02/02/19 12:18 Discharge - Discharge Clinical Impression: Right elbow pain Condition: Stable Disposition: HOME, SELF-CARE Additional Instructions: You were seen today in the emergency department for right elbow pain. Your x- ray is normal. This may be an exacerbation of your tennis elbow. Please follow-up with your primary care provider in regards to this visit. You have also been referred out to orthopedics if your pain does not get any better. You may need physical therapy. Rest her arm as much as possible. Continue to take ibuprofen 600 mg and acetaminophen 1000 mill grams every 6 hours as needed for your pain. Forms: Return to Work Referrals: ELLIS CHANDLER FNP-Ronaldo [Primary Care Provider] - Follow up as needed SALEEM ANDEROSN MD [ACTIVE STAFF] - Follow up as needed
--- NOTE | 2019-02-02 14:22 | RADIOLOGY REPORT (SQ) ---
EXAM DESCRIPTION: ELBOW RIGHT OVER 2 VIEWS COMPLETED DATE/TIME: 02/02/2019 1:56 pm REASON FOR STUDY: right elbow pain COMPARISON: None. NUMBER OF VIEWS: Four views. TECHNIQUE: AP, lateral, and both oblique radiographic images acquired of the right elbow. LIMITATIONS: None. FINDINGS: MINERALIZATION: Normal. BONES: No acute fracture or dislocation. JOINT: No effusion. SOFT TISSUES: No soft tissue swelling. No radiopaque foreign body. IMPRESSION: No radiographic evidence of acute injury at the right elbow. TECHNICAL DOCUMENTATION: JOB ID: [id number] [employer]- All Rights Reserved Reading location - IP/workstation name: [email or web address]
[2019-02-02 14:43] VITALS: BP 129/79
== END 2019-02-02 14:40 | disposition home or self-care (01) ==
LOC: ER 12:13
DX: M25.521 Pain in right elbow (principal); F17.200 Nicotine dependence, unspecified, uncomplicated; J45.909 Unspecified asthma, uncomplicated; E11.9 Type 2 diabetes mellitus without complications
CPT/HCPCS: 99283; 96372; 73080; J1885; J1100

== ENCOUNTER 2019-03-09 03:15 | Emergency (ER) | payer MEDICAID ==
[2019-03-09] MEDS ORDERED: NORMAL SALINE 1000 ML 1,000 ML IV ONE (03:43)
--- NOTE | 2019-03-09 03:45 | ER Document Report ---
ED General - General Chief Complaint: Diarrhea Stated Complaint: DIARRHEA,NAUSEA,DIZZINESS Time Seen by Provider: 03/09/19 03:35 Primary Care Provider: ELLIS CHANDLER FNP-C [Primary Care Provider] - Follow up in 3-5 days Notes: Patient is a 38-year-old female presents emergency department with a chief complaint of diarrhea, nausea, and dizziness. She states that she has had diarrhea for the past 2 days. She denies any fever. She is does state that she does have some nausea, but denies any vomiting. States that she had diarrhea about 15 times. 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 Patient atte mpted to take Pepto-Bismol, but states that it did not help. Abdominal pain. She does point to some cramping. TRAVEL OUTSIDE OF THE [place] IN LAST 30 DAYS: No - Related Data Allergies/Adverse Reactions: Penicillins Allergy (Verified 09/23/18 12:14) BEE STINGS Allergy (Uncoded 09/23/18 12:14) Past Medical History - Social History Smoking Status: Current Every Day Smoker Family History: Reviewed & Not Pertinent - Past Medical History Cardiac Medical History: Reports: Hx Hypercholesterolemia Denies: Hx Atrial Fibrillation, Hx Congestive Heart Failure, Hx Coronary Artery Disease, Hx Heart Attack, Hx Hypertension, Hx Peripheral Vascular Disease, Hx Pulmonary Embolism, Hx Heart Murmur Pulmonary Medical History: Reports: Hx Asthma, Hx Tuberculosis - EXPOSED A CHILD Denies: Hx Bronchitis, Hx COPD, Hx Pneumonia, Hx Respiratory Failure, Hx Sleep Apnea Neurological Medical History: Reports: Hx Seizures - "STRESS RELATED" LAST IN 2001. Denies: Hx Cerebrovascular Accident Endocrine Medical History: Reports: Hx Diabetes Mellitus Type 2. Denies: Hx Graves' Disease, Hx Hyperthyroidism, Hx Hypothyroidism Renal/ Medical History: Denies: Hx End Stage Renal Disease, Hx Kidney Stones, Hx Ovarian Cysts, Hx Peritoneal Dialysis, Hx Pelvic Inflammatory Disease Malignancy Medical History: Denies: Hx Breast Cancer, Hx Cervical Cancer, Hx Leukemia, Hx Lung Cancer, Hx Ovarian Cancer GI Medical History: Reports: Hx Gastroesophageal Reflux Disease. Denies: Hx Hiatal Hernia, Hx Irritable Bowel, Hx Liver Failure, Hx Pancreatitis, Hx Ulcer Musculoskeletal Medical History: Reports Hx Arthritis, Denies Hx Fibromyalgia, Denies Hx Multiple Sclerosis, Denies Hx Muscular Dystrophy, Denies Hx Systemic Lupus Erythematosus Psychiatric Medical History: Reports: Hx Anxiety, Hx Bipolar Disorder Denies: Hx Dementia, Hx Depression - ANXIETY, Hx Post Traumatic Stress Disorder, Hx Schizophrenia Traumatic Medical History: Denies: Hx Fractures Infectious Medical History: Denies: Hx HIV Past Surgical History: Reports: Hx Hysterectomy, Hx Tubal Ligation. Denies: Hx Appendectomy, Hx Section, Hx Cholecystectomy, Hx Colostomy, Hx Coronary Artery Bypass Graft, Hx Gastric Bypass Surgery, Hx Herniorrhaphy, Hx Mastectomy, Hx Pacemaker, Hx Tonsillectomy - Immunizations Hx Diphtheria, Pertussis, Tetanus Vaccination: Yes Review of Systems - Review of Systems Notes: REVIEW OF SYSTEMS: CONSTITUTIONAL : Denies recent illness. Denies recent unintentional weight loss. Denies fever, chills, or sweats. EENT: Denies eye, ear, throat, or mouth pain, discharge, or symptoms. Denies nasal or sinus congestion. CARDIOVASCULAR: Denies chest pain. RESPIRATORY: Denies shortness of breath, cough, congestion, difficulty breathing, or wheezing. GASTROINTESTINAL: See HPI GENITOURINARY: Denies difficulty urinating, burning, blood in urine, urgency or frequency. MUSCULOSKELETAL: Denies neck and back pain. Denies joint pain or swelling. SKIN: Denies rash, itchiness, or lesions HEMATOLOGIC : Denies easy bruising or bleeding. LYMPHATIC: Denies swollen, painful, enlarged glands. NEUROLOGICAL: Denies no numbness or tingling denies weakness. Denies headache. Denies altered mental status. Denies alteration in speech. PSYCHIATRIC: Denies stress, anxiety, alteration in sleep patterns, or depression. All other systems reviewed and negative. Physical Exam - Vital signs Vitals: Temp Pulse Resp BP Pulse Ox 97.7 F 73 19 150/93 H 100 03/09/19 03:25 03/09/19 03:25 03/09/19 03:25 03/09/19 03:25 03/09/19 03:25 - Notes Notes: PHYSICAL EXAMINATION: GENERAL: Appears well, healthy, well-nourished, no acute distress. HEAD: Normocephalic, atraumatic. EYES: PERRL, conjunctiva normal, all extraocular movements intact, sclera nonicteric ENT: Moist mucous membranes. NECK: Supple, no noticeable swelling, redness, rash. Normal range of motion. LUNGS: Equal breath sounds bilaterally and clear to auscultation. No wheezes rales or rhonchi. CARDIOVASCULAR: S1-S2, regular rate, regular rhythm. Radial pulses 2+, normal. ABDOMEN: Normoactive bowel sounds. Soft, nontender, no guarding, no rebound tenderness, and no masses palpated. EXTREMITIES: Normal strength and range of motion, no pitting or edema. No cyanosis. NEUROLOGICAL: Moves all extremities upon command. Strength 5/5 in all extremities. PSYCH: Normal mood, normal affect. SKIN: Warm, dry. No rash, lesions, ulcerations noted. Normal skin turgor. Course - Re-evaluation Re-evalutation: 03/09/19 04:36 Patient's hematology and chemistry are unremarkable. The nurse started on IV and the patient states that it hurts. She states that she does not want IV fluids at this time. Awaiting a C. difficile sample. I have a very low suspicion for a bowel obstruction, appendicitis, diverticulitis, diverticulosis, or any other life-threatening etiology at this time. I suspect the patient most likely has a gastrointestinal viral infection. Patient is well-appearing and nontoxic in appearance. She is able to tolerate oral fluids. Patient states that she does not want to eat, because she is afraid she may have diarrhea. 03/09/19 05:17 Patient still has not had a bowel movement at this time. She will be sent home with a lab slip to provide a stool sample. She will also be given Zofran for nausea. I have instructed her to take Imodium if she continues to have diarrhea tomorrow. She will follow-up with her primary care provider. She is in agreement with this plan. Verbal discharge instructions were given to the p atient. They verbalized understanding. They are stable for discharge. - Vital Signs Vital signs: Temp Pulse Resp BP Pulse Ox 97.9 F 69 20 142/74 H 100 03/09/19 05:33 03/09/19 05:33 03/09/19 05:33 03/09/19 05:33 03/09/19 05:33 - Laboratory Result Diagrams: 03/09/19 03:49 03/09/19 03:49 Laboratory results interpreted by me: 03/09/19 03/09/19 03:49 03:49 RDW 18.3 H Glucose 120 H Discharge - Discharge Clinical Impression: Nausea, Dizziness Diarrhea Qualifiers: Diarrhea type: unspecified type Qualified Code(s): R19.7 - Diarrhea, unspecified Condition: Stable Disposition: HOME, SELF-CARE Additional Instructions: You were seen today in the emergency department for diarrhea, nausea, and dizziness. Your dizziness is due to having multiple bouts of diarrhea. Please make sure you stay well-hydrated. You have been given Zofran, medication for nausea. You can take 1 tablet every 4-6 hours as needed for nausea or vomiting. You can take [id number] Imodium as needed. You are also being given a lab order for your stool. Please bring the sample to the lab when you have a bowel movement. Please follow-up with your primary care provider in regards to this visit. Forms: Follow-Up Laboratory Testing, Return to Work Referrals: ELLIS CHANDLER FNP-C [Primary Care Provider] - Follow up in 3-5 days
[2019-03-09 04:11] LABS: ABSOLUTE BASOPHILS # (AUTO) 0.1 10^3/uL (0.0-0.2); ABSOLUTE EOSINOPHILS # (AUTO) 0.4 10^3/uL (0.0-0.6); ABSOLUTE LYMPHOCYTES (AUTO) 2.7 10^3/uL (0.5-4.7); ABSOLUTE MONOCYTES (AUTO) 0.5 10^3/uL (0.1-1.4); ABSOLUTE NEUT (AUTO) 5.2 10^3/uL (1.7-8.2); BASOPHILS % (AUTO) 0.7 % (0-2); HEMATOCRIT 39.6 % (36.0-47.0); HEMOGLOBIN 13.3 g/dL (12.0-15.5); LYMPHOCYTES % (AUTO) 30.1 % (13-45); MEAN CORPUSCULAR HEMOGLOBIN 27.4 pg (27.0-33.4); MEAN CORPUSCULAR HGB CONC 33.7 g/dL (32.0-36.0); MEAN CORPUSCULAR VOLUME 82 fl (80-97); MONOCYTES % (AUTO) 5.9 % (3-13); PLATELET COUNT 163 10^3/uL (150-450); RED BLOOD COUNT 4.85 10^6/uL (3.72-5.28); RED CELL DISTRIBUTION WIDTH 18.3 % (11.5-14.0); SEGMENTED NEUTROPHILS % (AUTO) 58.3 % (42-78); TOTAL CELLS COUNTED % (AUTO) 100 %; WHITE BLOOD COUNT 8.9 10^3/uL (4.0-10.5)
[2019-03-09 04:30] LABS: ALANINE AMINOTRANSFERASE 26 U/L (9-52); ALBUMIN 3.9 g/dL (3.5-5.0); ALKALINE PHOSPHATASE 94 U/L (38-126); ANION GAP 9 (5-19); ASPARTATE AMINO TRANSFERASE 16 U/L (14-36); BILIRUBIN,DIRECT 0.2 mg/dL (0.0-0.4); BILIRUBIN,TOTAL 0.3 mg/dL (0.2-1.3); BLOOD UREA NITROGEN 12 mg/dL (7-20); CARBON DIOXIDE 24 mmol/L (22-30); CHLORIDE 107 mmol/L (98-107); GLUCOSE 120 mg/dL (75-110); POTASSIUM 3.8 mmol/L (3.6-5.0); SODIUM 139.8 mmol/L (137-145); TOTAL PROTEIN 6.8 g/dL (6.3-8.2)
[2019-03-09] MEDS ORDERED: ONDANSETRON ODT 4 MG TAB (6 TAB/ER DISP) PO PRN (05:09)
[2019-03-09 05:34] VITALS: BP 142/74
== END 2019-03-09 05:34 | disposition home or self-care (01) ==
LOC: ER 03:15
DX: R19.7 Diarrhea, unspecified (principal); R11.0 Nausea; R42 Dizziness and giddiness; R10.9 Unspecified abdominal pain; F17.200 Nicotine dependence, unspecified, uncomplicated; J45.909 Unspecified asthma, uncomplicated; E11.9 Type 2 diabetes mellitus without complications; Z87.19 Personal history of other diseases of the digestive system; Z90.710 Acquired absence of both cervix and uterus; Z98.51 Tubal ligation status; Z88.0 Allergy status to penicillin; Z91.030 Bee allergy status
CPT/HCPCS: 36415; 80053; 85025; 99284

== ENCOUNTER 2019-11-13 15:48 | Emergency (ER) | payer SELFPAY ==
--- NOTE | 2019-11-13 17:13 | ER Document Report ---
ED Medical Screen (RME) - General Chief Complaint: Dizziness Stated Complaint: DIZZINESS, NAUSEA Time Seen by Provider: 11/13/19 17:06 Primary Care Provider: ELLIS CHANDLER FNP-C [Primary Care Provider] - Follow up as needed TRAVEL OUTSIDE OF THE [place] 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 Patient also reports right elbow pain that has become progressively worse over the last week or so, denies any recent trauma. Has not tried any [id number] medications for this pain. Worse with time, nothing makes better. Denies any history of asthma. Patient is an intermittent smoker. Denies any fevers or chills. Denies any chest pain. I have greeted and performed a rapid initial assessment of this patient. A comprehensive ED assessment and evaluation of the patient, analysis of test results and completion of the medical decision making process will be conducted by additional ED providers. PHYSICAL EXAMINATION: GENERAL: Well-appearing, well-nourished and in no acute distress. NECK: Normal range of motion CV: s1, s2 regular LUNGS: No respiratory distress Musculoskeletal: Normal range of motion NEUROLOGICAL: Normal speech, normal gait. SKIN: Warm, Dry, normal turgor, no rashes or lesions noted. I have greeted and performed a rapid initial assessment of this patient. A com prehensive ED assessment and evaluation of the patient, analysis of test results and completion of medical decision making process will be conducted by an additional ED providers. - Related Data Allergies/Adverse Reactions: Penicillins Allergy (Verified 09/23/18 12:14) BEE STINGS Allergy (Uncoded 09/23/18 12:14) Past Medical History - Past Medical History Cardiac Medical History: Reports: Hx Hypercholesterolemia Denies: Hx Atrial Fibrillation, Hx Congestive Heart Failure, Hx Coronary Artery Disease, Hx Heart Attack, Hx Hypertension, Hx Peripheral Vascular Disease, Hx Pulmonary Embolism, Hx Heart Murmur Pulmonary Medical History: Reports: Hx Asthma, Hx Tuberculosis - EXPOSED A CHILD Denies: Hx Bronchitis, Hx COPD, Hx Pneumonia, Hx Respiratory Failure, Hx Sleep Apnea Neurological Medical History: Reports: Hx Seizures - "STRESS RELATED" LAST IN 2001. Denies: Hx Cerebrovascular Accident, Hx Parkinson's Disease Endocrine Medical History: Reports: Hx Diabetes Mellitus Type 2. Denies: Hx Graves' Disease, Hx Hyperthyroidism, Hx Hypothyroidism Renal/ Medical History: Denies: Hx End Stage Renal Disease, Hx Kidney Stones, Hx Ovarian Cysts, Hx Peritoneal Dialysis, Hx Pelvic Inflammatory Disease Malignancy Medical History: Denies: Hx Breast Cancer, Hx Cervical Cancer, Hx Leukemia, Hx Lung Cancer, Hx Ovarian Cancer GI Medical History: Reports: Hx Gastroesophageal Reflux Disease. Denies: Hx Hiatal Hernia, Hx Irritable Bowel, Hx Liver Failure, Hx Pancreatitis, Hx Ulcer Musculoskeltal Medical History: Reports Hx Arthritis, Denies Hx Fibromyalgia, Denies Hx Multiple Sclerosis, Denies Hx Muscular Dystrophy, Denies Hx Systemic Lupus Erythematosus Psychiatric Medical History: Reports: Hx Anxiety, Hx Bipolar Disorder Denies: Hx Dementia, Hx Depression - ANXIETY, Hx Post Traumatic Stress Disorder, Hx Schizophrenia Traumatic Medical History: Denies: Hx Fractures Infectious Medical History: Denies: Hx HIV Past Surgical History: Reports: Hx Hysterectomy, Hx Tubal Ligation. Denies: Hx Appendectomy, Hx Section, Hx Cholecystectomy, Hx Colostomy, Hx Coronary Artery Bypass Graft, Hx Gastric Bypass Surgery, Hx Herniorrhaphy, Hx Mastectomy, Hx Pacemaker, Hx Tonsillectomy - Immunizations Hx Diphtheria, Pertussis, Tetanus Vaccination: Yes Physical Exam - Vital signs Vitals: Temp Pulse Resp BP Pulse Ox 98.4 F 76 16 163/100 H 100 11/13/19 16:01 11/13/19 16:11/13/19 16:11/13/19 16:01 11/13/19 16:01 Course - Vital Signs Vital signs: Temp Pulse Resp BP Pulse Ox 98.4 F 76 16 163/100 H 100 11/13/19 16:01 11/13/19 16:01 11/13/19 16:11/13/19 16:11/13/19 16:01 Doctor's Discharge - Discharge Referrals: ELLIS CHANDLER FNP-C [Primary Care Provider] - Follow up as needed
[2019-11-13 17:51] LABS: HEMOGLOBIN 14.8 g/dL (12.0-15.5); MEAN CORPUSCULAR HEMOGLOBIN 30.4 pg (27.0-33.4); MEAN CORPUSCULAR HGB CONC 34.5 g/dL (32.0-36.0); MEAN CORPUSCULAR VOLUME 88 fl (80-97); PLATELET COUNT 174 10^3/uL (150-450); RED BLOOD COUNT 4.87 10^6/uL (3.72-5.28); RED CELL DISTRIBUTION WIDTH 13.4 % (11.5-14.0); WHITE BLOOD COUNT 9.9 10^3/uL (4.0-10.5)
--- NOTE | 2019-11-13 18:14 | RADIOLOGY REPORT (SQ) ---
EXAM DESCRIPTION: ELBOW RIGHT OVER 2 VIEWS COMPLETED DATE/TIME: 11/13/2019 5:45 pm REASON FOR STUDY: R elbow pain COMPARISON: None. NUMBER OF VIEWS: Four views. TECHNIQUE: AP, lateral, and both oblique radiographic images acquired of the right elbow. LIMITATIONS: None. FINDINGS: MINERALIZATION: Normal. BONES: No acute fracture or dislocation. No worrisome bone lesions. JOINT: No effusion. SOFT TISSUES: No soft tissue swelling. No foreign body. OTHER: No other significant finding. IMPRESSION: NEGATIVE STUDY OF THE RIGHT ELBOW. NO RADIOGRAPHIC EVIDENCE OF ACUTE INJURY. TECHNICAL DOCUMENTATION: JOB ID: [id number] [employer]- All Rights Reserved Reading location - IP/workstation name: [email or web address]
--- NOTE | 2019-11-13 18:15 | RADIOLOGY REPORT (SQ) ---
EXAM DESCRIPTION: CHEST 2 VIEWS COMPLETED DATE/TIME: 11/13/2019 5:45 pm REASON FOR STUDY: productive cough COMPARISON: 07/14/2008 EXAM PARAMETERS: NUMBER OF VIEWS: two views TECHNIQUE: Digital Frontal and Lateral radiographic views of the chest acquired. RADIATION DOSE: NA LIMITATIONS: none FINDINGS: LUNGS AND PLEURA: No opacities, masses or pneumothorax. No pleural effusion. MEDIASTINUM AND HILAR STRUCTURES: No masses or contour abnormalities. HEART AND VASCULAR STRUCTURES: Heart normal size. No evidence for failure. BONES: No acute findings. HARDWARE: None in the chest. OTHER: No other significant finding. IMPRESSION: NO ACUTE RADIOGRAPHIC FINDING IN THE CHEST. TECHNICAL DOCUMENTATION: JOB ID: [id number] [employer]- All Rights Reserved Reading location - IP/workstation name: [email or web address]
[2019-11-13 18:16] LABS: ALBUMIN 4.5 g/dL (3.5-5.0); ALKALINE PHOSPHATASE 89 U/L (38-126); ANION GAP 10 (5-19); ASPARTATE AMINO TRANSFERASE 23 U/L (14-36); BILIRUBIN,DIRECT 0.3 mg/dL (0.0-0.4); BILIRUBIN,TOTAL 0.3 mg/dL (0.2-1.3); BLOOD UREA NITROGEN 10 mg/dL (7-20); CALCIUM 9.7 mg/dL (8.4-10.2); CARBON DIOXIDE 27 mmol/L (22-30); CHLORIDE 101 mmol/L (98-107); GLUCOSE 108 mg/dL (75-110); POTASSIUM 4.2 mmol/L (3.6-5.0); TOTAL PROTEIN 7.6 g/dL (6.3-8.2)
[2019-11-13 18:23] LABS: A TYPE INFLUENZA AG NEGATIVE (NEGATIVE); B INFLUENZA AG NEGATIVE (NEGATIVE)
[2019-11-13] MEDS ORDERED: PREDNISONE 20 MG TABLET PO ONE (21:21)
--- NOTE | 2019-11-13 21:22 | ER Document Report ---
HPI - HPI Time Seen by Provider: 11/13/19 17:06 Pain Level: 2 Context: Patient is a 39-year-old female that comes emergency department for chief complaint of sinus pressure, sinus congestion, productive cough with yellowish sputum for the past 2 days. She reports pain with cough but denies chest pain otherwise. She has not had the influenza vaccine but she has been exposed to influenza at work. She smokes intermittently, admits to a history of asthma and has an albuterol inhaler at home. She denies any medications otherwise. She denies and has had a hysterectomy. - CONSTITUTIONAL Constitutional: DENIES: Fever, Chills - REPRODUCTIVE Reproductive: DENIES: : Past Medical History - General Information source: Patient - Social History Smoking Status: Current Every Day Smoker Smoking Education Provided: Yes - <3 min Drug Abuse: None Lives with: Family Family History: Reviewed & Not Pertinent Patient has suicidal ideation: No Patient has homicidal ideation: No - Past Medical History Cardiac Medical History: Reports: Hx Hypercholesterolemia Denies: Hx Atrial Fibrillation, Hx Congestive Heart Failure, Hx Coronary Artery Disease, Hx Heart Attack, Hx Hypertension, Hx Peripheral Vascular Disease, Hx Pulmonary Embolism, Hx Heart Murmur Pulmonary Medical History: Reports: Hx Asthma, Hx Tuberculosis - EXPOSED A CHILD Denies: Hx Bronchitis, Hx COPD, Hx Pneumonia, Hx Respiratory Failure, Hx Sleep Apnea Neurological Medical History: Reports: Hx Seizures - "STRESS RELATED" LAST IN 2001. Denies: Hx Cerebrovascular Accident, Hx Parkinson's Disease Endocrine Medical History: Denies: Hx Graves' Disease, Hx Hyperthyroidism, Hx Hypothyroidism Renal/ Medical History: Denies: Hx End Stage Renal Disease, Hx Kidney Stones, Hx Ovarian Cysts, Hx Peritoneal Dialysis, Hx Pelvic Inflammatory Disease Malignancy Medical History: Denies: Hx Breast Cancer, Hx Cervical Cancer, Hx Leukemia, Hx Lung Cancer, Hx Ovarian Cancer GI Medical History: Reports: Hx Gastroesophageal Reflux Disease. Denies: Hx Hiatal Hernia, Hx Irritable Bowel, Hx Liver Failure, Hx Pancreatitis, Hx Ulcer Musculoskeletal Medical History: Reports Hx Arthritis, Denies Hx Fibromyalgia, Denies Hx Multiple Sclerosis, Denies Hx Muscular Dystrophy, Denies Hx Systemic Lupus Erythematosus Psychiatric Medical History: Reports: Hx Anxiety, Hx Bipolar Disorder Denies: Hx Dementia, Hx Depression - ANXIETY, Hx Post Traumatic Stress Disorder, Hx Schizophrenia Traumatic Medical History: Denies: Hx Fractures Infectious Medical History: Denies: Hx HIV Past Surgical History: Reports: Hx Hysterectomy, Hx Tubal Ligation. Denies: Hx Appendectomy, Hx Section, Hx Cholecystectomy, Hx Colostomy, Hx Coronary Artery Bypass Graft, Hx Gastric Bypass Surgery, Hx Herniorrhaphy, Hx Mastectomy, Hx Pacemaker, Hx Tonsillectomy - Immunizations Hx Diphtheria, Pertussis, Tetanus Vaccination: Yes Vertical Provider Document - CONSTITUTIONAL General Appearance: WD/WN, No Apparent Distress - INFECTION CONTROL TRAVEL OUTSIDE OF THE [place] IN LAST 30 DAYS: No - HEENT HEENT: Atraumatic, Normocephalic. negative: Normal ENT Exam - Sinus congestion but nontender sinuses. Unremarkable ears. Unremarkable oropharyngeal exam. Unremarkable eyes - NECK Neck: Normal Inspection - RESPIRATORY Respiratory: Breath Sounds Normal, No Respiratory Distress - Occasional congested cough but no wheezing, tachypnea, or labored breathing. Clear lungs. - CARDIOVASCULAR Cardiovascular: Regular Rate, Regular Rhythm - GI/ABDOMEN Gastrointestinal: Abdomen Soft, Abdomen Non-Tender - BACK Back: Normal Inspection - MUSCULOSKELETAL/EXTREMETIES Musculoskeletal/Extremeties: MAEW, FROM, Non-Tender - NEURO Level of Consciousness: Awake, Alert, Appropriate Motor/Sensory: No Motor Deficit, No Sensory Deficit - DERM Integumentary: Warm, Dry, No Rash Course - Re-evaluation Re-evalutation: Chest x-ray negative. Patient is a smoker with symptoms consistent with viral upper respiratory infection and bronchitis. She reports wheezing but is not wheezing currently. No hypoxia or signs of distress. Discussed medical cessation, treatment of bronchitis and wheezing, provided with work release, discussed follow-up and return precautions. Patient states appreciation and agreement. - Vital Signs Vital signs: Temp Pulse Resp BP Pulse Ox 98.2 F 61 16 135/81 H 100 11/13/19 20:13 11/13/19 20:13 11/13/19 20:13 11/13/19 20:13 11/13/19 20:13 - Laboratory Result Diagrams: 11/13/19 17:33 11/13/19 17:33 Discharge - Discharge Clinical Impression: Wheezing, Sinus pressure Upper respiratory infection Qualifiers: URI type: unspecified URI Qualified Code(s): J06.9 - Acute upper respiratory infection, unspecified Condition: Stable Disposition: HOME, SELF-CARE Additional Instructions: Your chest x-ray and laboratory work-up did not show any concerning findings. Your evaluation and symptoms are consistent with bronchitis. This appears to be viral and this should slowly resolve with time. Take prednisone as prescribed, use albuterol inhaler with spacer if needed, use the nasal spray and decongestant. You can take [id number] antihistamines and pain medication if needed. Rest and drink really of fluids. Stop smoking. Follow-up with primary care. Return if you worsen including spiking fever, difficulty breathing, or any other concerning or worsening symptoms. Prescriptions: Prednisone [Deltasone 20 mg Tablet] 3 tab PO DAILY 4 Days #12 tablet Fluticasone Propionate [Flonase Nasal Hanson 50 Mcg/Hanson 16 gm] 2 sprays NASL Q12 #1 inhaler Albuterol Sulfate [Proair HFA Inhalation Aerosol 8.5 gm MDI] 2 puff IH Q4H PRN #1 mdi PRN Reason: Pseudoephedrine HCl [Sudafed 12 Hour] 120 mg PO Q12 PRN #14 tablet.er PRN Reason: Forms: Return to Work Referrals: ELLIS CHANDLER FNP-C [Primary Care Provider] - Follow up as needed
[2019-11-13 22:05] VITALS: BP 140/80
== END 2019-11-13 22:03 | disposition home or self-care (01) ==
LOC: ER 15:48
DX: J06.9 Acute upper respiratory infection, unspecified (principal); J45.909 Unspecified asthma, uncomplicated; R09.81 Nasal congestion; R05 Cough; F17.200 Nicotine dependence, unspecified, uncomplicated; Z79.899 Other long term (current) drug therapy; Z20.828 Contact with and (suspected) exposure to other viral communicable diseases
CPT/HCPCS: 99284; 36415; 85027; 80053; 87804; 71046; 73080; J7512

== ENCOUNTER 2020-07-12 17:53 | Emergency (ER) | payer SELFPAY ==
--- NOTE | 2020-07-12 20:06 | ER Document Report ---
HPI - HPI Patient complains to provider of: Pain right foot Time Seen by Provider: 07/12/20 19:55 Onset: Other - Chronic Onset/Duration: Persistent Quality of pain: Sharp Pain Level: 3 Context: 39-year-old female presents to ED for pain to the right foot started all fully healed now is behind the great toe and she has some bruising behind the great toe. She states is been going on for a long time. She states she is tried Tylenol Motrin elevation ice different shoes and nothing seems to work. She states she has not followed up with her primary doctor in about a year and a half. She is alert oriented respirations regular nonlabored speaking in full sentences. Constitutional: Negative for fever. HENT: Negative for sore throat. Eyes: Negative for visual changes. Cardiovascular: Negative for chest pain. Respiratory: Negative for shortness of breath. Gastrointestinal: Negative for abdominal pain, vomiting or diarrhea. Genitourinary: Negative for dysuria. Musculoskeletal: Chronic pain to the right foot more than several months pain with ambulation Skin: Negative for rash. Neurological: Negative for headaches, weakness or numbness. 10 point ROS negative except as marked above and in HPI. PHYSICAL EXAMINATION: GENERAL: Well-appearing, well-nourished and in no acute distress. HEAD: Atraumatic, normocephalic. EYES: Pupils equal round extraocular movements intact, conjunctiva are normal. ENT: Nares patent NECK: Normal range of motion LUNGS: No respiratory distress Musculoskeletal: Normal range of motion no obvious injuries mild discoloration behind the great toe, denies any injuries pain with ambulation NEUROLOGICAL: Normal speech, PSYCH: Normal mood, normal affect. SKIN: Warm, Dry, normal turgor, no rashes or lesions noted. Associated Symptoms: Other - Pain right foot Exacerbated by: Movement, Walking Relieved by: Denies Similar symptoms previously: Yes Recently seen / treated by doctor: No - REPRODUCTIVE Reproductive: DENIES: : Past Medical History - General Information source: Patient - Social History Smoking Status: Current Every Day Smoker Cigarette use (# per day): Yes - Half pack a day Smoking Education Provided: Yes Frequency of alcohol use: None Drug Abuse: None Lives with: Family Family History: Reviewed & Not Pertinent Patient has homicidal ideation: No - Past Medical History Cardiac Medical History: Reports: Hx Hypercholesterolemia Pulmonary Medical History: Reports: Hx Asthma, Hx Tuberculosis - EXPOSED A CHILD EENT Medical History: Reports: None Neurological Medical History: Reports: Hx Seizures - "STRESS RELATED" LAST IN 2001 Endocrine Medical History: Reports: Hx Diabetes Mellitus Type 2 Renal/ Medical History: Reports: None Malignancy Medical History: Reports: None GI Medical History: Reports: Hx Gastroesophageal Reflux Disease Musculoskeletal Medical History: Reports Hx Arthritis Skin Medical History: Reports None Psychiatric Medical History: Reports: Hx Anxiety, Hx Bipolar Disorder, Hx Depression Traumatic Medical History: Reports: None Infectious Medical History: Denies: Hx HIV Past Surgical History: Reports: Hx Hysterectomy, Hx Tubal Ligation - Immunizations Hx Diphtheria, Pertussis, Tetanus Vaccination: Yes Vertical Provider Document - INFECTION CONTROL TRAVEL OUTSIDE OF THE [place] IN LAST 30 DAYS: No Course - Re-evaluation Re-evalutation: 07/12/20 21:19 X-rays were discussed with patient and written report of x-rays given to patient. Patient was recommended following up with podiatry. I did discuss with her what the x-rays meant and told her to use ibuprofen and Tylenol ice and warm packs. Patient verbalized understanding and agreement treatment plan and patient was discharged home. - Vital Signs Vital signs: Temp Pulse Resp BP Pulse Ox 98.1 F 98 18 135/90 H 98 07/12/20 18:04 07/12/20 18:04 07/12/20 18:04 07/12/20 18:04 07/12/20 18:04 - Diagnostic Test Radiology reviewed: Image reviewed, Reports reviewed Discharge - Discharge Clinical Impression: Hallux valgus (acquired), right foot Heel spur Qualifiers: Laterality: right Qualified Code(s): M77.31 - Calcaneal spur, right foot Condition: Stable Disposition: HOME, SELF-CARE Additional Instructions: Plantar Fasciitis or Heel Spur Plantar fasciitis is an inflammation of a ligament on the underside of the foot. It can be caused by injury, overuse such as running, or poorly fitting shoes. There may be a bone spur on the heel if inflammation has persisted a long time. Plantar fasciitis is treated with stretching exercises and antiinflammatory medicine. More severe cases may require injection of cortisone. It may take several weeks to get better. If nothing gives relief, an operation to remove the heel spur may help. Call or return if there is redness, increasing pain, swelling, fever, or any other new symptoms. Exercises for the Foot Muscles Stretching and strengthening of the foot muscles is an important part of recovery from injury, as well as in treatment and prevention of overuse syndromes like plantar fasciitis. TOWEL CURLS: Put your foot on a dry towel. Curl your toes to pick it up, then drop it. As it becomes easier, use a heavier towel. Repeat 20 times, twice daily. ZUNIGA CURLS: Lift and turn your knee, so your foot is against the opposite leg about mid-zuniga. Try to "grab" the entire zuniga bone with your toes, while moving your foot up and down the leg for one minute. Repeat twice daily. TOE LIFTS: Put your opposite foot over your 2nd to 5th toes. Now lift the toes up, pushing the other foot upward. Repeat 10 times, twice daily. Repeat using the large toe. EVERSIONS: Cross the opposite foot over, placing the heel just behind the 4th and 5th toes. Try to lift up the outside of the bottom foot. Hold 10 seconds. Repeat twice daily. Acetaminophen Acetaminophen may be taken for pain relief or fever control. It's much safer than aspirin, offering a wider range of "safe" dosages. It is safe during . Some brand names are Tylenol, Panadol, Datril, Anacin 3, Tempra, and Liquiprin. Acetaminophen can be repeated every four hours. The following are maximum recommended dosages: WEIGHT Dose Drops Elixir Chewable(80mg) (LBS.) drprs=droppers tsp=teaspoon 6 40 mg .4 ml (1/2) 6-11 80 mg .8 ml (full) 1/2 tsp 1 tab 12-16 120 mg 1 1/2 drprs 3/4 tsp 1 1/2 tabs 17-23 160 mg 2 drprs 1 tsp 2 tabs 24-30 240 mg 3 drprs 1 1/2 tsp 3 tabs 30-35 320 mg 2 tsp 4 tabs 36-41 360 mg 2 1/4 tsp 4 1/2 tabs 42-47 400 mg 2 1/2 tsp 5 tabs 48-53 480 mg 3 tsp 6 tabs 54-59 520 mg 3 1/4 tsp 6 1/2 tabs 60-64 560 mg 3 1/2 tsp 7 tabs 65-70 600 mg 3 3/4 tsp 7 1/2 tabs 71-76 640 mg 4 tsp 8 tabs 77-82 720 mg 4 1/2 tsp 9 tabs 83-88 800 mg 5 tsp 10 tabs >89 pounds or adults 650 mg to 900 mg Acetaminophen can be repeated every four hours. Maximum daily dose not to exceed 4000 mg. These maximum recommended dosages are slightly higher than the dosages written on the product container, but these dosages are very safe and well below the toxic dosage for acetaminophen. Ibuprofen Ibuprofen is an excellent, safe drug for pain control. In addition, it has potent antiinflammatory effects which are beneficial, especially in the treatment of injuries, arthritis, or tendonitis. It's best to take ibuprofen with food. Persons with ulcer disease or allergy to aspirin should notify their physician of this before taking ibuprofen. Take the medication exactly as prescribed. Don't take additional doses unless instructed to do so by your doctor. If you develop wheezing, shortness of breath, hives, faintness, stomach pain, vomiting, or dark black stools, return for re-evaluation at once. FOLLOW-UP CARE: If you have been referred to a physician for follow-up care, call the physicians office for an appointment as you were instructed or within the next two days. If you experience worsening or a significant change in your symptoms, notify the physician immediately or return to the Emergency Department at any time for re-evaluation. Forms: Elevated Blood Pressure, Smoking Cessation Education Referrals: ELLIS CHANDLER FNP-C [Primary Care Provider] - Follow up as needed ARLEEN LEVINE DPM [ACTIVE STAFF] - Follow up as needed
--- NOTE | 2020-07-12 20:46 | RADIOLOGY REPORT (SQ) ---
EXAM DESCRIPTION: X-ray right foot 3 views COMPLETED DATE/TME: 07/12/2020 20:00 CLINICAL HISTORY: 39 years, Female, pain in right foot COMPARISON: None. NUMBER OF VIEWS: TECHNIQUE: LIMITATIONS: None. FINDINGS: There is a plantar calcaneal spur. There is a mild hallux valgus deformity. No fracture or dislocation. No evidence of arthritis. Mineralization of bone appears normal. IMPRESSION: Plantar calcaneal spur. Mild hallux valgus deformity. copyright 2010 [employer]- All Rights Reserved
[2020-07-12 21:22] VITALS: BP 156/88
== END 2020-07-12 21:25 | disposition home or self-care (01) ==
LOC: ER 17:53
DX: M77.31 Calcaneal spur, right foot (principal); M20.11 Hallux valgus (acquired), right foot; F17.210 Nicotine dependence, cigarettes, uncomplicated; J45.909 Unspecified asthma, uncomplicated; E11.9 Type 2 diabetes mellitus without complications
CPT/HCPCS: 99283

== ENCOUNTER → 2020-09-03 | Outpatient (CLI) | payer SELFPAY ==
[2020-09-03 09:46] VITALS: BP 142/84
--- NOTE | 2020-09-03 09:46 | ER RDC ASSESSMENT REPORT ---
Intake - In the Last 14 days Have you traveled outside [place]?: No Have you been in close contact with someone CONFIRMED: Yes Worked in Healthcare?: No - Symptoms Subjective Fever([place] feverish): No Chills: No Muscule Aches: No Runny Nose: Yes Sore Throat: No Cough (New or worsening chronic cough): Yes Shortness of breath: No Nausea or Vomiting: No Headache: No Abdominal Pain: No Diarrhea(3 or more loose stools in last 24 hours): No - Do you have any of the following Chronic lung disease: Asthma or emphysema or COPD: Yes Chronic Lung Disease Comment: History of asthma Cystic Fibrosis: No Diabetes: Yes High Blood Pressure: No Cardiovascular Disease: No Chronic Kidney Disease: No Chronic Liver Disease: No Chronic blood disorder like Sickle Cell Disease: No Weak immune system due to disease or medication: No Neurologic condition that limits movement: No Developmental delay - Moderate to Severe: No Recent (within past 2 weeks) or current : No Morbid Obesity (>100 pounds over ideal weight): No Obesity Comment: Height 5 feet 3 inches weight 173 pounds - Objective Temperature: 97.1 F Pulse Rate: 91 Respiratory Rate: 16 Blood Pressure: 142/84 O2 Sat by Pulse Oximetry: 97 Objective: Given above, testing performed: If Testing Performed: Test Specimen Type Sent to General - General Information source: Patient Notes: Patient here at [facility] for Covid testing patient reports had exposure to coworker last week just found out they tested positive patient reports started to have symptoms yesterday which included a runny nose and a cough. Patient does have a history of asthma and has utilized her inhaler 2 days ago and not since. Patient reports her primary care is with [facility]. She plans to call them later today. - Related Data Allergies/Adverse Reactions: Penicillins Allergy (Verified 11/13/19 19:46) BEE STINGS Allergy (Uncoded 09/23/18 12:14) Past Medical History - General Information source: Patient - Social History Cigarette use (# per day): Yes - Smokes a pack per day Smoking Education Provided: Yes - Quit smoking - Past Medical History Cardiac Medical History: Reports: Hx Hypercholesterolemia Denies: Hx Atrial Fibrillation, Hx Congestive Heart Failure, Hx Coronary Artery Disease, Hx Heart Attack, Hx Hypertension, Hx Peripheral Vascular Disease, Hx Pulmonary Embolism, Hx Heart Murmur Pulmonary Medical History: Reports: Hx Asthma, Hx Tuberculosis - EXPOSED A CHILD Denies: Hx Bronchitis, Hx COPD, Hx Pneumonia, Hx Respiratory Failure, Hx Sleep Apnea Neurological Medical History: Reports: Hx Seizures - "STRESS RELATED" LAST IN 2001. Denies: Hx Cerebrovascular Accident, Hx Parkinson's Disease Endocrine Medical History: Reports: Hx Diabetes Mellitus Type 2. Denies: Hx Graves' Disease, Hx Hyperthyroidism, Hx Hypothyroidism Renal/ Medical History: Denies: Hx End Stage Renal Disease, Hx Kidney Stones, Hx Ovarian Cysts, Hx Peritoneal Dialysis, Hx Pelvic Inflammatory Disease Malignancy Medical History: Denies: Hx Breast Cancer, Hx Cervical Cancer, Hx Leukemia, Hx Lung Cancer, Hx Ovarian Cancer GI Medical History: Reports: Hx Gastroesophageal Reflux Disease. Denies: Hx Hiatal Hernia, Hx Irritable Bowel, Hx Liver Failure, Hx Pancreatitis, Hx Ulcer Musculoskeletal Medical History: Reports Hx Arthritis, Denies Hx Fibromyalgia, Denies Hx Multiple Sclerosis, Denies Hx Muscular Dystrophy, Denies Hx Systemic Lupus Erythematosus Psychiatric Medical History: Reports: Hx Anxiety, Hx Bipolar Disorder, Hx Depression Denies: Hx Dementia, Hx Post Traumatic Stress Disorder, Hx Schizophrenia Traumatic Medical History: Denies: Hx Fractures Infectious Medical History: Denies: Hx HIV Past Surgical History: Reports: Hx Hysterectomy, Hx Tubal Ligation. Denies: Hx Appendectomy, Hx Section, Hx Cholecystectomy, Hx Colostomy, Hx Coronary Artery Bypass Graft, Hx Gastric Bypass Surgery, Hx Herniorrhaphy, Hx Mastectomy, Hx Pacemaker, Hx Tonsillectomy Physical Exam - General General appearance: Appears well, Alert In distress: None Notes: PHYSICAL EXAMINATION: GENERAL: Well-appearing and in no acute distress. HEAD: Atraumatic, normocephalic. EYES: sclera anicteric, conjunctiva are normal. ENT: nares patent. Moist mucous membranes. NECK: Normal range of motion, supple without lymphadenopathy LUNGS: CTAB and equal. No rales or rhonchi. Inspiratory expiratory wheezing noted anterior and posterior bilateral patient reports has not used her inhaler today and did not have it in the car she was traveling in. Plans to use it later today used it last 2 days ago. Patient does have a noted occasional moist nonproductive cough no distress O2 sat is 97%. Patient reports usually clears with inhaler use. HEART: Regular rate and rhythm without murmurs ABDOMEN: Soft, nontender, normal bowel sounds, no guarding. EXTREMITIES: Normal range of motion, no pitting edema. No cyanosis. NEUROLOGICAL: Cranial nerves grossly intact. Normal speech. Normal gait. PSYCH: Normal mood, normal affect. SKIN: Warm, Dry, normal turgor, no rashes or lesions noted Diagnostic Results Laboratory Results: Patient informed of negative rapid strep and negative rapid flu results. Pending strep culture. Pending Covid testing results. Patient provided instructions regarding Covid to include: As a person under investigation for Covid 19, the [facility], division of public health advises you to adhere to the following guidance until your test results are reported to you. If your test result is positive, you will receive additional information from your provider and your local health department at that time. Remain at home until you are cleared by the health provider or public health authorities. Keep a log of visitors to your home, notify any visitors to your home of your isolation status. If you plan to move to a new address or leave the [facility], notify the local health department in your County. Call your doctor or seek care if you have an urgent medical need. Before s [facility] medical care, call ahead to get instructions from the provider before arriving at the medical office clinic or hospital. Notify them that you are being tested for the virus that causes Covid 19 so that arrangements can be made, as necessary, to prevent transmission to others in the healthcare setting. Next, notify the local health department in your county. If a medical emergency arises and you need to call 911, inform the first responders that you are being tested for the virus that causes Covid 19. Next, notify the local health department in your [facility]. Patient Education/Counseling Counseling/Education: Patient presents with upper respiratory symptoms worrisome for possible Covid 19. Patient does not have emergency worring symptoms such as difficulty breathing, shortness of breath, chest pain, pressure, confusion or cyanosis. Patient appears suitable for discharge. Patient instructed to follow-up with PCP at [facility] family care today. Plans to utilize inhaler soon as she gets back home. To ED for persistent or worsening symptoms.. Patient's vital signs are stable and patient is nontoxic in appearance. Good return precautions have been discussed with patient, patient verbalized understanding and is agreeable with discharge plan of care at this time. [facility] Discharge - Discharge Clinical Impression: (Ruled Out): Upper respiratory disease Condition: Stable Disposition: Home; Selfcare
[2020-09-03 12:15] LABS: A TYPE INFLUENZA AG NEGATIVE (NEGATIVE); B INFLUENZA AG NEGATIVE (NEGATIVE)
--- OUTSIDE RECORDS SUMMARY | 2020-09-06 09:39 | XMS REPORT ---
:1980 [facility] [place] [address] [place] [id number] Care Team Providers Name Role Phone Dao Attending Clinician Unavailable Dao Attending Clinician Unavailable Allergies, Adverse Reactions, Alerts This patient has no known allergies or adverse reactions. Medications This patient has no known medications. Problems This patient has no known problems. Procedures Procedure Date / Time Performed Performing Clinician Devic e OFFICE/OUTPATIENT VISIT EST 2019-01-02 08:30:00 OFFICE/OUTPATIENT VISIT EST 2018-07-23 10:45:00 Results Test Description Test Time Test Comments Text Results Atomic Results Result Comments HEMOGLOBIN A1c WITH eAG 2019-01-02 09:27:00 Test Item Value Reference Range Comments HEMOGLOBIN A1c (test code = 92515448) 6.6 % of total Hgb <5.7 eAG (mg/dL) (test code = 64314163) 143 (calc) eAG (mmol/L) (test code = 90688820) 7.9 (calc) CBC (H/H, RBC, INDICES, WBC, PLT)2019-01-02 09:27:00 Test Item Value Reference Range Comments RDW (test code = 61992445) 20.3 % 11.0-15.0 MPV (test code = 55749036) TNP fL PLATELET COUNT (test code = 87206541) 231 Thousand/uL 140-400 MCHC (test code = 46199407) 30.9 g/dL 32.0-36.0 MCV (test code = 79544275) 74.3 fL 80.0-100.0 HEMATOCRIT (test code = 65212873) 40.1 % 35.0-45.0 WHITE BLOOD CELL COUNT (test code = 8.7 Thousand/uL 3.8-10.8 44826853) HEMOGLOBIN (test code = 04296504) 12.4 g/dL 11.7-15.5 MCH (test code = 82835068) 23.0 pg 27.0-33.0 RED BLOOD CELL COUNT (test code = 61023279) 5.40 Million/uL 3.80 -5.10 HEPATIC FUNCTION [id number] 09:27:00 Test Item Value Reference Range Comments ALKALINE PHOSPHATASE (test code = 25021149) 74 U/L 33-1 15 ALT (test code = 21505821) 12 U/L 6-29 PROTEIN, TOTAL (test code = 97631950) 7.0 g/dL 6.1-8.1 ALBUMIN/GLOBULIN RATIO (test code = 1.6 (calc) 1.0-2.5 64284892) AST (test code = 96777414) 15 U/L 10-30 GLOBULIN (test code = 81600016) 2.7 g/dL (calc) 1.9-3.7 ALBUMIN (test code = 23399291) 4.3 g/dL 3.6-5.1 BILIRUBIN, DIRECT (test code = 30333145) 0.1 mg/dL < OR = 0.2 BILIRUBIN, INDIRECT (test code = 37152714) 0.4 mg/dL (calc) 0.2- 1.2 BILIRUBIN, TOTAL (test code = 45732647) 0.5 mg/dL 0.2-1.2 COMPREHENSIVE METABOLIC [id number] 09:27:00 Test Item Value Reference Range Comments eGFR NON-AFR. LIBERIAN (test code = 97 mL/min/1.73m2 > OR = 60 31261606) GLUCOSE (test code = 93778683) 118 mg/dL 65-99 ALT (test code = 43325755) 12 U/L 6-29 CHLORIDE (test code = 39778642) 105 mmol/L 98-110 CALCIUM (test code = 64779855) 9.5 mg/dL 8.6-10.2 CARBON DIOXIDE (test code = 51491832) 27 mmol/L 20-32 eGFR (test code = 112 mL/min/1.73m2 > OR = 60 48934313) BUN/CREATININE RATIO (test code = NOT APPLICABLE (calc) 6-22 87294038) POTASSIUM (test code = 06980402) 4.3 mmol/L 3.5-5.3 UREA NITROGEN (BUN) (test code = 7 mg/dL 7-25 45348763) AST (test code = 26612559) 15 U/L 10-30 ALBUMIN (test code = 18298509) 4.3 g/dL 3.6-5.1 ALBUMIN/GLOBULIN RATIO (test code = 1.6 (calc) 1.0-2.5 59300532) ALKALINE PHOSPHATASE (test code = 74 U/L 33-115 14673627) GLOBULIN (test code = 93098273) 2.7 g/dL (calc) 1.9-3.7 BILIRUBIN, TOTAL (test code = 0.5 mg/dL 0.2-1.2 67607126) SODIUM (test code = 26673075) 137 mmol/L 135-146 CREATININE (test code = 03812313) 0.77 mg/dL 0.50-1.10 PROTEIN, TOTAL (test code = 00657439) 7.0 g/dL 6.1-8.1 LIPID PANEL, [id number] 09:27:00 Test Item Value Reference Range Comments CHOL/HDLC RATIO (test code = 12395593) 4.1 (calc) <5.0 CHOLESTEROL, TOTAL (test code = 45823087) 171 mg/dL <200 LDL-CHOLESTEROL (test code = 06584333) 95 mg/dL (calc) TRIGLYCERIDES (test code = 42151840) 259 mg/dL <150 NON HDL CHOLESTEROL (test code = 69477825) 129 mg/dL (calc) <130 HDL CHOLESTEROL (test code = 59302460) 42 mg/dL >50 ANEMIA PROFILE [id number] 11:57:00 Test Item Value Reference Range Comments WHITE BLOOD CELL COUNT (test code = 9.9 Thousand/uL 3.8-10.8 13430541) % SATURATION (test code = 91156433) 3 % (calc) 11-50 ABSOLUTE NEUTROPHILS (test code = 7049 cells/uL 8162-6904 24739315) RDW (test code = 26185126) 17.0 % 11.0-15.0 EOSINOPHILS (test code = 75260423) 1.7 % IRON, TOTAL (test code = 86862357) 13 mcg/dL 40-190 FOLATE, SERUM (test code = 40615570) 11.7 ng/mL MCHC (test code = 81932311) 30.2 g/dL 32.0-36.0 MONOCYTES (test code = 98328106) 4.6 % IRON BINDING CAPACITY (test code = 442 mcg/dL (calc) 250-450 43842660) HEMATOCRIT (test code = 22707386) 30.5 % 35.0-45.0 ABSOLUTE LYMPHOCYTES (test code = 2188 cells/uL 850-3900 55828070) RETICULOCYTE COUNT, AUTOMATED (test code = 1.1 % 63113179) MCH (test code = 09420319) 21.9 pg 27.0-33.0 HEMOGLOBIN (test code = 28033445) 9.2 g/dL 11.7-15.5 ABSOLUTE BASOPHILS (test code = 36006863) 40 cells/uL 0-200 RED BLOOD CELL COUNT (test code = 4.20 Million/uL 3.80-5.10 14959993) NEUTROPHILS (test code = 44634185) 71.2 % ABSOLUTE EOSINOPHILS (test code = 168 cells/uL 15-500 85448293) LYMPHOCYTES (test code = 00981019) 22.1 % MPV (test code = 24941997) 11.4 fL 7.5-12.5 FERRITIN (test code = 00068172) 2 ng/mL 10-154 PLATELET COUNT (test code = 20998483) 334 Thousand/uL 140-400 ABSOLUTE MONOCYTES (test code = 60127265) 455 cells/uL 200-95 0 VITAMIN B12 (test code = 43854916) 502 pg/mL 200-1100 RETICULOCYTE, ABSOLUTE (test code = 37520 cells/uL 74255-23153 67290306) MCV (test code = 25075024) 72.6 fL 80.0-100.0 BASOPHILS (test code = 45966677) 0.4 % HEPATIC FUNCTION [id number] 11:57:00 Test Item Value Reference Range Comments ALKALINE PHOSPHATASE (test code = 48147602) 68 U/L 33-1 15 PROTEIN, TOTAL (test code = 92662343) 7.2 g/dL 6.1-8.1 BILIRUBIN, INDIRECT (test code = 00300093) 0.3 mg/dL (calc) 0.2- 1.2 ALBUMIN (test code = 62796656) 4.4 g/dL 3.6-5.1 GLOBULIN (test code = 02600631) 2.8 g/dL (calc) 1.9-3.7 BILIRUBIN, TOTAL (test code = 94853500) 0.3 mg/dL 0.2-1.2 BILIRUBIN, DIRECT (test code = 45108579) 0.0 mg/dL < OR = 0.2 ALT (test code = 98035427) 26 U/L 6-29 ALBUMIN/GLOBULIN RATIO (test code = 1.6 (calc) 1.0-2.5 93280491) AST (test code = 15059219) 36 U/L 10-30 COMPREHENSIVE METABOLIC [id number] 11:57:00 Test Item Value Reference Range Comments CHLORIDE (test code = 97215989) 106 mmol/L 98-110 ALBUMIN (test code = 97209588) 4.4 g/dL 3.6-5.1 GLOBULIN (test code = 49462976) 2.8 g/dL (calc) 1.9-3.7 AST (test code = 63311943) 36 U/L 10-30 SODIUM (test code = 79536984) 137 mmol/L 135-146 eGFR (test code = 97 mL/min/1.73m2 > OR = 60 14191550) BILIRUBIN, TOTAL (test code = 0.3 mg/dL 0.2-1.2 62601374) CARBON DIOXIDE (test code = 90304032) 25 mmol/L 20-32 ALKALINE PHOSPHATASE (test code = 68 U/L 33-115 00611482) POTASSIUM (test code = 90105603) 4.1 mmol/L 3.5-5.3 CALCIUM (test code = 79096743) 9.4 mg/dL 8.6-10.2 ALBUMIN/GLOBULIN RATIO (test code = 1.6 (calc) 1.0-2.5 22794166) GLUCOSE (test code = 98431274) 123 mg/dL 65-99 PROTEIN, TOTAL (test code = 05775869) 7.2 g/dL 6.1-8.1 CREATININE (test code = 25888790) 0.87 mg/dL 0.50-1.10 BUN/CREATININE RATIO (test code = NOT APPLICABLE (calc) 6-22 04191423) eGFR NON-AFR. LIBERIAN (test code = 84 mL/min/1.73m2 > OR = 60 14373439) UREA NITROGEN (BUN) (test code = 10 mg/dL 7-25 70783711) ALT (test code = 28525744) 26 U/L 6-29 LIPID PANEL, [id number] 11:57:00 Test Item Value Reference Range Comments LDL-CHOLESTEROL (test code = 94036982) 128 mg/dL (calc) NON HDL CHOLESTEROL (test code = 74209050) 162 mg/dL (calc) <130 CHOL/HDLC RATIO (test code = 16116356) 4.8 (calc) <5.0 HDL CHOLESTEROL (test code = 77932561) 43 mg/dL >50 CHOLESTEROL, TOTAL (test code = 25748763) 205 mg/dL <200 TRIGLYCERIDES (test code = 77592887) 206 mg/dL <150 Hemoglobin A1C\S\2018-07-23 10:45:00 Test Item Value Reference Range Comments HgbA1C, Fingerstick (test code = 4548-4) 6.2 % 4-5.6 Assessments Condition Name Status Diagnosis Date Treating Clinici an Type 2 diabetes mellitus without Active complications Mixed hyperlipidemia Active Iron deficiency anemia, unspecified Active Low back pain Active Mild intermittent asthma, uncomplicated Active Excessive and frequent menstruation with Active irregular cycle Iron deficiency anemia, unspecified Active Type 2 diabetes mellitus without Active complications Encounters Start End Encounter Admission Attending Care Care Encounter Date/Time Date/Time Type Type Clinicians Facility Department ID 2019-01-02 2019-01-02 [facility] [id number] 08:30:00 08:30:00 [facility] [id number] s [id number] and [id number] [facility], 2018-07-23 2018-07-23 Outpatient [facility] 1 [id number] 10:45:00 10:45:00 [facility] [id number] s [id number] and [id number] [facility] Social History This patient has no known social history. Vital Signs This patient has no known vital signs.
== END ==
LOC: RDC 09:01
PROVIDERS: ATTEND Nurse Practitioner Family
DX: Z20.828 Contact with and (suspected) exposure to other viral communicable diseases (principal); R09.89 Other specified symptoms and signs involving the circulatory and respiratory systems; J45.998 Other asthma; E11.9 Type 2 diabetes mellitus without complications; R05 Cough; E78.00 Pure hypercholesterolemia, unspecified; K21.9 Gastro-esophageal reflux disease without esophagitis; F17.210 Nicotine dependence, cigarettes, uncomplicated; Z71.6 Tobacco abuse counseling
CPT/HCPCS: 87070; 87880; 87635; 87804; C9803

== ENCOUNTER 2020-10-23 16:11 | Emergency (ER) | payer SELFPAY ==
[2020-10-23 16:26] VITALS: BP 144/86
--- NOTE | 2020-10-23 16:56 | ER Document Report ---
HPI - HPI Patient complains to provider of: Sore throat Time Seen by Provider: 10/23/20 16:42 Onset: This afternoon Onset/Duration: Gradual Quality of pain: Achy Pain Level: 5 Context: Patient states she had a sore throat in ER on today and her jaw pop. Patient states she has had right-sided jaw pain that radiates along her mandible. Patient denies any fever cough. Associated Symptoms: Earache, Other - Right jaw pain. denies: Fever, Headache Exacerbated by: Denies Relieved by: Denies Similar symptoms previously: No Recently seen / treated by doctor: No - ROS ROS below otherwise negative: Yes Systems Reviewed and Negative: Yes All other systems reviewed and negative - CONSTITUTIONAL Constitutional: DENIES: Fever, Chills - EENT EENT: REPORTS: Sore Throat, Ear Pain - RESPIRATORY Respiratory: DENIES: Coughing - GASTROINTESTINAL Gastrointestinal: DENIES: Patient vomiting - REPRODUCTIVE Reproductive: DENIES: : - DERM Skin Color: Normal Skin Problems: None Past Medical History - General Information source: Patient - Social History Smoking Status: Current Every Day Smoker Frequency of alcohol use: None Drug Abuse: None Occupation: [employer] Family History: Reviewed & Not Pertinent - Past Medical History Cardiac Medical History: Reports: Hx Hypercholesterolemia Pulmonary Medical History: Reports: Hx Asthma, Hx Tuberculosis - EXPOSED A CHILD Neurological Medical History: Reports: Hx Seizures - "STRESS RELATED" LAST IN 2001. Denies: Hx Cerebrovascular Accident, Hx Parkinson's Disease Endocrine Medical History: Reports: Hx Diabetes Mellitus Type 2. Denies: Hx Graves' Disease, Hx Hyperthyroidism, Hx Hypothyroidism Renal/ Medical History: Denies: Hx End Stage Renal Disease, Hx Kidney Stones, Hx Ovarian Cysts, Hx Peritoneal Dialysis, Hx Pelvic Inflammatory Disease GI Medical History: Reports: Hx Gastroesophageal Reflux Disease. Denies: Hx Hiatal Hernia, Hx Irritable Bowel, Hx Liver Failure, Hx Pancreatitis, Hx Ulcer Musculoskeletal Medical History: Reports Hx Arthritis Psychiatric Medical History: Reports: Hx Anxiety, Hx Bipolar Disorder, Hx Depression Traumatic Medical History: Denies: Hx Fractures Infectious Medical History: Denies: Hx HIV Past Surgical History: Reports: Hx Hysterectomy, Hx Tubal Ligation - Immunizations Hx Diphtheria, Pertussis, Tetanus Vaccination: Yes Vertical Provider Document - CONSTITUTIONAL Agree With Documented VS: Yes Exam Limitations: No Limitations General Appearance: WD/WN, No Apparent Distress - INFECTION CONTROL TRAVEL OUTSIDE OF THE [place] IN LAST 30 DAYS: No - HEENT HEENT: Atraumatic, Normocephalic, Pharyngeal Tenderness. negative: Pharyngeal Exudate, Pharyngeal Erythema, Tympanic Membrane Red, Tympanic Membrane Bulging Mouth Diagram: 1 - Root canal without chromic Notes: Tenderness to right mandibular area, no sublingual or submental swelling, no crepitus to TMJ - NECK Neck: Normal Inspection, Supple. negative: Lymphadenopathy-Left, Lymphadenopathy-Right - RESPIRATORY Respiratory: Breath Sounds Normal, No Respiratory Distress - CARDIOVASCULAR Cardiovascular: Regular Rate, Regular Rhythm - MUSCULOSKELETAL/EXTREMETIES Musculoskeletal/Extremeties: MAEW - NEURO Level of Consciousness: Awake, Alert, Appropriate - DERM Integumentary: Warm, Dry, No Rash Course - Re-evaluation Re-evalutation: 10/23/20 Suspect likely dental cause of patient's pain symptoms due to shooting pain along right lower jaw area, no concern for any otitis media or otitis externa. Patient without any salivary gland fullness or tenderness. We will plan to place patient on antibiotic for possible dental problem. Patient advised that this will additionally cover for any possible strep therefore we do not need to order a rapid strep test at this time. - Vital Signs Vital signs: Temp Pulse Resp BP Pulse Ox 98.1 F 80 18 144/86 H 99 10/23/20 16:24 10/23/20 16:24 10/23/20 16:24 10/23/20 16:24 10/23/20 16:24 - Laboratory Results Critical Laboratory Results Reviewed: No Critical Results - Radiology Results Critical Radiology Results Reviewed: No Critical Results Discharge - Discharge Clinical Impression: Pain, dental, Wheezing, History of asthma Condition: Stable Disposition: HOME, SELF-CARE Instructions: Asthma ([facility]), Clindamycin ([facility]), Dentist, Inhaled Bronchodilators ([facility]), Sore Throat ([facility]), Steroid Medication, Toothache ([facility]) Additional Instructions: Return immediately for any new or worsening symptoms: Fever, facial swelling, lack of improvement or any concerning new symptoms Followup with your primary care provider, call tomorrow to make a followup appointment Follow up with a dental care provider for recheck Prescriptions: Acetaminophen with Codeine [Tylenol #3 Tablet] 1 each PO Q6HP PRN #10 tablet PRN Reason: Clindamycin HCl 300 mg PO TID #21 capsule Prednisone [Deltasone 10 mg Tablet] 10 mg PO ASDIR #21 tablet Inhaler,Assist Device,Accesory [Optichamber] 1 each MC Q4 PRN #1 each PRN Reason: Albuterol Sulfate [Proair Hfa Inhalation Aerosol 8.5 gm Mdi] 2 puff IH Q4 PRN #1 mdi PRN Reason: Forms: Smoking Cessation Education Referrals: [facility] [Provider Group] - Follow up as needed
== END 2020-10-23 17:12 | disposition home or self-care (01) ==
LOC: ER 16:11
DX: J02.9 Acute pharyngitis, unspecified (principal); K08.9 Disorder of teeth and supporting structures, unspecified; R06.2 Wheezing; R68.84 Jaw pain; F17.200 Nicotine dependence, unspecified, uncomplicated; E78.00 Pure hypercholesterolemia, unspecified; E11.9 Type 2 diabetes mellitus without complications; Z98.51 Tubal ligation status
CPT/HCPCS: 99283